=== PATIENT | female | born 1955 | race Caucasian/White ===

== ENCOUNTER → 2016-07-27 | Outpatient (CLI) | payer MEDICARE, MEDICAID ==
[~2016-07-27] MED LIST: METHACHOLINE KIT (J7674) INH ONE
== END ==
LOC: M CARPUL 13:38
PROVIDERS: ATTEND Internal Medicine Pulmonary Disease
DX: R06.00 Dyspnea, unspecified (principal)
CPT/HCPCS: 94070; 95070; J7674

== ENCOUNTER → 2016-08-16 | Outpatient (REF) | payer MEDICARE, MEDICAID | LOC: M SFHCLERA 16:37 | PROVIDERS: ATTEND Nurse Practitioner Family | DX: J06.9 Acute upper respiratory infection, unspecified (principal) ==

== ENCOUNTER → 2016-10-11 | Outpatient (REF) | payer MEDICARE, MEDICAID ==
[2016-10-11 18:31] LABS: BASO % 0.4 % (0.0-1.0); EOS # 0.1 K/mm3 (0.0-0.50); EOS % 1.5 % (0.0-3.0); LARGE UNSTAINED CELL # 0.1 K/mm3 (0.0-0.4); LARGE UNSTAINED CELL % 2.6 % (0.0-4.0); LYMPH # 1.7 K/mm3 (1.5-4.5); LYMPH % 32.8 % (24.0-44.0); MEAN CORPUSCULAR HEMOGLOBIN 26.9 pg (27.0-33.0); MEAN CORPUSCULAR HGB CONC 31.6 g/dl (32.0-36.5); MEAN CORPUSCULAR VOLUME 85.1 fl (80.0-96.0); MONO # 0.3 K/mm3 (0.0-0.8); MONO % 5.7 % (0.0-5.0); NEUTROPHILS # 2.7 K/mm3 (1.8-7.7); NEUTROPHILS % 57.1 % (36.0-66.0); PLATELET COUNT, AUTOMATED 286 k/mm3 (150-450); RED CELL DISTRIBUTION WIDTH 14.5 % (11.5-14.5); WHITE BLOOD COUNT 4.8 K/mm3 (4.0-10.0)
[2016-10-11 18:54] LABS: VITAMIN B12 LEVEL 397 PG/ML
[2016-10-11 18:59] LABS: ALBUMIN 3.7 GM/DL (3.2-5.2); ALBUMIN/GLOBULIN RATIO 1.12 (1.00-1.93); ALKALINE PHOSPHATASE 96 U/L (45-117); ALT/SGPT 18 U/L (12-78); ANION GAP 5 MEQ/L (8-16); AST/SGOT 12 U/L (15-37); BILIRUBIN,TOTAL 0.3 MG/DL (0.2-1.0); BLOOD UREA NITROGEN 15 MG/DL (7-18); CALCIUM LEVEL 8.2 MG/DL (8.5-10.1); CARBON DIOXIDE LEVEL 31 MEQ/L (21-32); CHLORIDE LEVEL 105 MEQ/L (98-107); CREATININE FOR GFR 0.65 MG/DL (0.55-1.02); GLOMERULAR FILTRATION RATE > 60.0 (>51); GLUCOSE, FASTING 92 MG/DL (70-105); POTASSIUM SERUM 4.5 MEQ/L (3.5-5.1); SODIUM LEVEL 141 MEQ/L (136-145)
== END ==
LOC: M SFHCLERA 11:56
PROVIDERS: ATTEND Family Medicine
DX: R53.82 Chronic fatigue, unspecified (principal); Z79.82 Long term (current) use of aspirin; Z79.899 Other long term (current) drug therapy
CPT/HCPCS: 80053; 82306; 82607; 82746; 84443; 85025; 96372; G0463; J3420

== ENCOUNTER → 2016-11-09 | Outpatient (REF) | payer MEDICARE, MEDICAID | LOC: M SFHCLERA 08:59 | PROVIDERS: ATTEND Family Medicine | DX: Z13.1 Encounter for screening for diabetes mellitus (principal); Z13.220 Encounter for screening for lipoid disorders; R25.2 Cramp and spasm; E78.00 Pure hypercholesterolemia, unspecified ==

== ENCOUNTER → 2016-12-20 | Outpatient (CLI) | payer MEDICARE, MEDICAID ==
[~2016-12-20] MED LIST changes: +BENT10CA PO; +BREO1INH INH; +CALC500T36 PO; -METHACHOLINE KIT (J7674) INH ONE; +NORCOTAB PO; +OMEP40CA2 PO; +PROAAER10 INH; +ZOFR4TAB3 PO
--- NOTE | 2016-12-20 18:47 | REP ---
Clinical: Pain. Technique: Neutral and frog lateral views of the left hip. Findings: Moderate arthritic degenerative changes include increased sclerosis to the acetabular roof, joint space narrowing, and marginal spurring as well as small spurring along the anteroinferior femoral head. No acute fracture dislocation. Surrounding soft tissues normal. Impression: Moderate arthritic degenerative changes. Signed by Nguyễn Lauren MD 12/20/2016 06:38 P
== END ==
LOC: M LRY 18:14
PROVIDERS: ATTEND Nurse Practitioner Family
DX: M16.12 Unilateral primary osteoarthritis, left hip (principal)
CPT/HCPCS: 73502; 96372; G0463; J1885

== ENCOUNTER 2017-01-22 12:02 | Emergency (ER) | payer OTHER, MEDICARE, MEDICAID ==
[~2017-01-22] VITALS: Ht 167.6 cm; Wt 72.7 kg
[2017-01-22 12:07] VITALS: BP 118/68
[2017-01-22] MEDS ORDERED: BENT10CA PO (12:17)
[2017-01-22] MEDS ORDERED: PROAAER10 INH (12:17)
[2017-01-22] MEDS ORDERED: OMEP40CA2 PO (12:17)
[2017-01-22] MEDS ORDERED: CALC500T36 PO (12:17)
[2017-01-22] MEDS ORDERED: BREO1INH INH (12:17)
[2017-01-22] MEDS ORDERED: IBUPROFEN 600 MG TAB As Ordered ONE (13:42)
[2017-01-22] MEDS ORDERED: ACETAMINOPHEN 325 MG TAB As Ordered ONE (13:44)
[2017-01-22] MEDS ORDERED: IBUPROFEN 600 MG TAB PO ONE (13:45)
[2017-01-22] MEDS ORDERED: ACETAMINOPHEN 325 MG TAB PO ONE (13:45)
[2017-01-22] MEDS ORDERED: NORCOTAB PO (14:00)
[2017-01-22] MEDS ORDERED: ZOFR4TAB3 PO (14:01)
--- NOTE | 2017-01-22 14:18 | REP ---
CT OF THE BRAIN WITHOUT CONTRAST: REASON: Pain after trauma. COMPARISON: None. TECHNIQUE: 4.5 mm contiguous transaxial sections were obtained from the skull base to the cerebral convexities with thin cuts through the posterior fossa without the administration of intravenous contrast. FINDINGS: The ventricles and sulci are consistent with the patient's age. There are no extra-axial fluid collections. There is no mass effect. The deep cerebral white matter is consistent with the patient's age. The orbital and petrous structures , cerebellopontine angles, and posterior fossa are unremarkable. The sella turcica, cavernous, and paracavernous structures are essentially unremarkable. The visualized portions of the paranasal sinuses and mastoid air cells are clear. Images of the skull base show no gross abnormality. IMPRESSION: Essentially unremarkable CT examination of the brain. Signed by Dayo Carreno DO 01/22/2017 04:41 P
--- NOTE | 2017-01-22 14:18 | REP ---
CT OF THE CERVICAL SPINE: REASON: Pain after trauma. PRIORS: None. Degenerative change is seen in the cervical spine, particularly at the C5-6 level where there is spondylosis. The facet joints are well aligned bilaterally. There is no evidence of an acute cervical spine fracture. There is no evidence of abnormal paraspinal soft tissue swelling. IMPRESSION: Chronic changes. Signed by Dayo Carreno DO 01/22/2017 04:41 P
--- NOTE | 2017-01-22 14:27 | REP ---
REASON: Pain. COMPARISON: None. Degenerative change is seen throughout the thoracic spine. Vertebral body height and alignment is within normal limits. There is no evidence of a fracture. IMPRESSION: Chronic changes. Signed by Dayo Carreno DO 01/22/2017 04:41 P
--- NOTE | 2017-01-22 14:28 | REP ---
TWO-VIEW CHEST: REASON: Pain after trauma. COMPARISON: 03/11/2016 FINDINGS: The superior mediastinal structures are midline. The cardiac silhouette is unremarkable in size, shape, and position. The diaphragmatic surfaces of the lungs are regular, and the costophrenic angles are clear. The pulmonary sampson are clear. The imaged osseous structures are intact. IMPRESSION: There is no acute cardiopulmonary disease. Signed by Dayo Carreno DO 01/22/2017 04:41 P
--- NOTE | 2017-01-22 14:30 | REP ---
REASON: Pain after trauma. COMPARISON: None. Degenerative change is seen involving the L4-5 level with partial syndesmophyte formation seen on the left along with endplate sclerosis and disc space narrowing with anterior lipping. Vertebral body height and alignment is within normal limits. There is no evidence of an acute fracture. There is no evidence of spondylolysis or spondylolisthesis. Degenerative facet joint changes are suspected at L4-5 and L5-S1 bilaterally. IMPRESSION: Chronic changes as described above. It should be stated that there is mild chronic superior endplate concave deformity seen L2, L1, T12 and T11. Signed by Dayo Carreno DO 01/22/2017 04:41 P
--- NOTE | 2017-01-23 02:49 | ECGEPIP ---
Stationary ECG Study [facility] - ED Test Date: 2017-01-22 Pat Name: MARY NEIL Department: Room: - Gender: F Third Miller: CARO : 1955 Requested By: Aneudy Murray Order Number: [id number] Reading MD: Anupam Oleary Measurements Intervals [place] Rate: 71 P: 57 UT: 174 QRS: 52 QRSD: 94 T: 27 QT: 414 QTc: 450 Interpretive Statements SINUS RHYTHM NONSPECIFIC T-WAVE ABNORMALITY NO PRIORS Electronically Signed On 01-23-2017 2:49:12 EDT by Anupam Oleary
== END 2017-01-22 14:19 | disposition home or self-care (01) ==
LOC: M ED 12:02 → EDBD 12:02 → M ED 14:19
DX: S13.9XXA Sprain of joints and ligaments of unspecified parts of neck, initial encounter (principal); S23.8XXA Sprain of other specified parts of thorax, initial encounter; V49.9XXA Car occupant (driver) (passenger) injured in unspecified traffic accident, initial encounter; Y92.9 Unspecified place or not applicable; Y93.9 Activity, unspecified; Y99.9 Unspecified external cause status; M51.24 Other intervertebral disc displacement, thoracic region; M51.26 Other intervertebral disc displacement, lumbar region; M51.34 Other intervertebral disc degeneration, thoracic region; M50.322 Other cervical disc degeneration at C5-C6 level; Z79.899 Other long term (current) drug therapy; Z88.5 Allergy status to narcotic agent; Z88.2 Allergy status to sulfonamides; Z88.8 Allergy status to other drugs, medicaments and biological substances

== ENCOUNTER → 2017-05-06 | Outpatient (CLI) | payer OTHER | LOC: M RAD 13:03 | PROVIDERS: ATTEND Family Medicine | DX: M54.6 Pain in thoracic spine (principal) ==

== ENCOUNTER → 2017-07-06 | Outpatient (REF) | payer OTHER ==
[2017-07-06 18:42] LABS: TOTAL 25(OH) VITAMIN D 40.5 NG/ML (30.0-100.0)
== END ==
LOC: M SFHCLERA 11:50
DX: S22.000S Wedge compression fracture of unspecified thoracic vertebra, sequela (principal); X58.XXXS Exposure to other specified factors, sequela; Y92.9 Unspecified place or not applicable
CPT/HCPCS: 82306

== ENCOUNTER → 2017-12-20 | Outpatient (CLI) | payer MEDICARE, MEDICAID, OTHER ==
[2017-12-20 12:14] LABS: BASO % 0.5 % (0.0-1.0); EOS # 0.1 10^3/uL (0.0-0.50); EOS % 1.3 % (0.0-3.0); HEMATOCRIT 38.2 % (36.0-47.0); HEMOGLOBIN 12.1 g/dl (12.0-15.5); LYMPH # 1.7 10^3/uL (1.5-4.5); LYMPH % 27.4 % (24.0-44.0); MEAN CORPUSCULAR HEMOGLOBIN 26.9 pg (27.0-33.0); MEAN CORPUSCULAR HGB CONC 31.7 g/dl (32.0-36.5); MEAN CORPUSCULAR VOLUME 84.9 fl (80.0-96.0); MONO # 0.5 10^3/uL (0.0-0.8); MONO % 8.1 % (0.0-5.0); NEUTROPHILS # 3.8 10^3/uL (1.8-7.7); NEUTROPHILS % 62.7 % (36.0-66.0); PLATELET COUNT, AUTOMATED 314 10^3/uL (150-450); WHITE BLOOD COUNT 6.1 10^3/uL (4.0-10.0)
[2017-12-20 12:40] LABS: FOLATE 18.3 NG/ML (>5.4); PTH INTACT 47.5 PG/ML (18.5-88.0); TOTAL 25(OH) VITAMIN D 52.1 NG/ML (30.0-100.0); VITAMIN B12 LEVEL 533 PG/ML (247-911)
[2017-12-20 12:51] LABS: ALBUMIN 3.7 GM/DL (3.2-5.2); ALBUMIN/GLOBULIN RATIO 1.09 (1.00-1.93); ALKALINE PHOSPHATASE 69 U/L (45-117); ALT/SGPT 23 U/L (12-78); ANION GAP 8 MEQ/L (8-16); AST/SGOT 12 U/L (7-37); BILIRUBIN,TOTAL 0.4 MG/DL (0.2-1.0); BLOOD UREA NITROGEN 15 MG/DL (7-18); CALCIUM LEVEL 8.3 MG/DL (8.8-10.2); CARBON DIOXIDE LEVEL 31 MEQ/L (21-32); CHLORIDE LEVEL 105 MEQ/L (98-107); CHOLESTEROL LEVEL 155 MG/DL (<200); CREATININE FOR GFR 0.53 MG/DL (0.55-1.30); GLOMERULAR FILTRATION RATE > 60.0 (>45); GLUCOSE, FASTING 85 MG/DL (70-100); HDL CHOLESTEROL 62 MG/DL (>40); IRON (FE) 85 UG/DL (50-170); LDL CHOLESTEROL 77.6 MG/DL (<100); MAGNESIUM LEVEL 2.1 MG/DL (1.8-2.4); NON-HDL-C 93 MG/DL; PERCENT SATURATION 18.8 % (13.2-45.0); SODIUM LEVEL 144 MEQ/L (136-145); TOTAL IRON BINDING CAPACITY 453 UG/DL (250-450); TOTAL PROTEIN 7.1 GM/DL (6.4-8.2); TRIGLYCERIDES LEVEL 77 MG/DL (<150)
[2017-12-24 08:08] LABS: COPPER PLASMA 113 ug/dL (72-166); LDL DIRECT 80 mg/dL (0-99); ZINC PLASMA 80 ug/dL (56-134)
== END ==
LOC: M LRY 09:04
DX: E66.01 Morbid (severe) obesity due to excess calories (principal); Z98.84 Bariatric surgery status; Z86.39 Personal history of other endocrine, nutritional and metabolic disease
CPT/HCPCS: 82525

== ENCOUNTER → 2018-03-10 | Outpatient (REF) | payer MEDICARE, MEDICAID ==
[2018-03-10 17:45] LABS: BASO % 0.5 % (0.0-1.0); EOS # 0.1 10^3/uL (0.0-0.50); EOS % 1.4 % (0.0-3.0); HEMATOCRIT 37.6 % (36.0-47.0); IMMATURE GRANULOCYTE % 0.3 % (0-3.0); LYMPH # 1.8 10^3/uL (1.5-4.5); LYMPH % 27.8 % (24.0-44.0); MEAN CORPUSCULAR HGB CONC 31.9 g/dl (32.0-36.5); MEAN CORPUSCULAR VOLUME 84.7 fl (80.0-96.0); MONO # 0.5 10^3/uL (0.0-0.8); MONO % 8.3 % (0.0-5.0); NEUTROPHILS % 61.7 % (36.0-66.0); PLATELET COUNT, AUTOMATED 310 10^3/uL (150-450); RED BLOOD COUNT 4.44 10^6/uL (4.00-5.40); RED CELL DISTRIBUTION WIDTH 16.9 % (11.5-14.5); WHITE BLOOD COUNT 6.5 10^3/uL (4.0-10.0)
[2018-03-10 18:12] LABS: ALBUMIN 3.8 GM/DL (3.2-5.2); ALBUMIN/GLOBULIN RATIO 1.23 (1.00-1.93); ALKALINE PHOSPHATASE 57 U/L (45-117); ALT/SGPT 20 U/L (12-78); AMYLASE 57 U/L (25-115); ANION GAP 5 MEQ/L (8-16); AST/SGOT 14 U/L (7-37); BILIRUBIN,TOTAL 0.3 MG/DL (0.2-1.0); BLOOD UREA NITROGEN 14 MG/DL (7-18); CALCIUM LEVEL 8.9 MG/DL (8.8-10.2); CARBON DIOXIDE LEVEL 30 MEQ/L (21-32); CHLORIDE LEVEL 107 MEQ/L (98-107); CPK CREATINE PHOSPHOKINASE 64 U/L (26-192); CREATININE FOR GFR 0.54 MG/DL (0.55-1.30); GLOMERULAR FILTRATION RATE > 60.0 (>45); GLUCOSE, FASTING 86 MG/DL (70-100); LIPASE 150 U/L (73-393); MB/CK RELATIVE INDEX 2.66 (< OR =4); POTASSIUM SERUM 4.8 MEQ/L (3.5-5.1); SODIUM LEVEL 142 MEQ/L (136-145); THYROID STIMULATING HORMONE 0.929 uIU/ML (0.358-3.740); TOTAL PROTEIN 6.9 GM/DL (6.4-8.2); TROPONIN I < 0.02 NG/ML (< 0.10)
== END ==
LOC: M SFHCLERA 11:56
DX: R07.9 Chest pain, unspecified (principal); Z79.899 Other long term (current) drug therapy
CPT/HCPCS: 82150

== ENCOUNTER → 2018-03-16 | Outpatient (CLI) | payer MEDICARE, MEDICAID ==
[2018-03-16 11:28] LABS: BASO % 0.7 % (0.0-1.0); EOS # 0.1 10^3/uL (0.0-0.50); EOS % 1.9 % (0.0-3.0); HEMATOCRIT 36.9 % (36.0-47.0); HEMOGLOBIN 11.6 g/dl (12.0-15.5); IMMATURE GRANULOCYTE % 0.2 % (0-3.0); LYMPH # 1.9 10^3/uL (1.5-4.5); LYMPH % 32.4 % (24.0-44.0); MEAN CORPUSCULAR HEMOGLOBIN 26.4 pg (27.0-33.0); MEAN CORPUSCULAR HGB CONC 31.4 g/dl (32.0-36.5); MEAN CORPUSCULAR VOLUME 83.9 fl (80.0-96.0); MONO # 0.5 10^3/uL (0.0-0.8); MONO % 8.9 % (0.0-5.0); NEUTROPHILS # 3.2 10^3/uL (1.8-7.7); NEUTROPHILS % 55.9 % (36.0-66.0); PLATELET COUNT, AUTOMATED 287 10^3/uL (150-450); RED CELL DISTRIBUTION WIDTH 16.1 % (11.5-14.5); WHITE BLOOD COUNT 5.7 10^3/uL (4.0-10.0)
[2018-03-16 13:22] LABS: D-DIMER QUANT < 270.0 ng/ml (<500)
[2018-03-16 15:19] LABS: ANION GAP 10 MEQ/L (8-16); BLOOD UREA NITROGEN 14 MG/DL (7-18); CALCIUM LEVEL 8.8 MG/DL (8.8-10.2); CARBON DIOXIDE LEVEL 26 MEQ/L (21-32); CHLORIDE LEVEL 108 MEQ/L (98-107); GLOMERULAR FILTRATION RATE > 60.0 (>45); GLUCOSE, FASTING 79 MG/DL (70-100); NT-PRO BNP 88 PG/ML (<125); POTASSIUM SERUM 4.5 MEQ/L (3.5-5.1); SODIUM LEVEL 144 MEQ/L (136-145); TROPONIN I < 0.02 NG/ML (< 0.10)
== END ==
LOC: M LRY 10:02
DX: I50.9 Heart failure, unspecified (principal); I25.10 Atherosclerotic heart disease of native coronary artery without angina pectoris; R07.9 Chest pain, unspecified; R00.2 Palpitations; I48.91 Unspecified atrial fibrillation; R06.02 Shortness of breath
CPT/HCPCS: 84443

== ENCOUNTER → 2018-05-28 | Outpatient (REF) | payer MEDICARE, MEDICAID | LOC: M SFHCLERA 15:49 | DX: J02.9 Acute pharyngitis, unspecified (principal) ==

== ENCOUNTER → 2018-08-14 | Outpatient (CLI) | payer MEDICARE, MEDICAID ==
[~2018-08-14] MED LIST changes: +ZOFR4TAB14 PO; -ZOFR4TAB3 PO
--- NOTE | 2018-08-14 16:42 | REP ---
Chest two views HISTORY: Shortness of breath Comparison: 01/22/2017 The lungs are clear. The heart is normal in size. The pulmonary vasculature is normal in appearance. The bony structure is intact. IMPRESSION: No acute disease. Electronically Signed by Bronson Leroy MD 08/14/2018 04:34 P
== END ==
LOC: M LRY 16:20
PROVIDERS: ATTEND Nurse Practitioner Family
DX: R06.02 Shortness of breath (principal)
CPT/HCPCS: 71046; 87804; 87880; G0463

== ENCOUNTER → 2018-08-14 | Outpatient (REF) | payer MEDICARE, MEDICAID | LOC: M SFHCLERA 15:27 | PROVIDERS: ATTEND Nurse Practitioner Family | DX: R53.81 Other malaise (principal) ==

== ENCOUNTER → 2019-02-05 | Outpatient (CLI) | payer MEDICARE, MEDICAID ==
[~2019-02-05] MED LIST changes: -CALC500T36 PO; +CALC500T61 PO; +HYDR-3715 PO; -NORCOTAB PO
[2019-02-05 11:38] LABS: BASO % 0.7 % (0.0-1.0); EOS # 0.1 10^3/uL (0.0-0.50); EOS % 2.2 % (0.0-3.0); HEMATOCRIT 36.9 % (36.0-47.0); HEMOGLOBIN 11.6 g/dl (12.0-15.5); LYMPH # 1.8 10^3/uL (1.5-4.5); LYMPH % 30.1 % (24.0-44.0); MEAN CORPUSCULAR HEMOGLOBIN 26.7 pg (27.0-33.0); MEAN CORPUSCULAR HGB CONC 31.4 g/dl (32.0-36.5); MONO # 0.7 10^3/uL (0.0-0.8); MONO % 11.1 % (0.0-5.0); NEUTROPHILS # 3.3 10^3/uL (1.8-7.7); NEUTROPHILS % 55.7 % (36.0-66.0); PLATELET COUNT, AUTOMATED 263 10^3/uL (150-450); RED BLOOD COUNT 4.34 10^6/uL (4.00-5.40); WHITE BLOOD COUNT 5.9 10^3/uL (4.0-10.0)
[2019-02-05 11:43] LABS: ALBUMIN 3.5 GM/DL (3.2-5.2); ALT/SGPT 23 U/L (12-78); BILIRUBIN,TOTAL 0.4 MG/DL (0.2-1.0); BLOOD UREA NITROGEN 17 MG/DL (7-18); CALCIUM LEVEL 8.4 MG/DL (8.8-10.2); CARBON DIOXIDE LEVEL 33 MEQ/L (21-32); CHLORIDE LEVEL 107 MEQ/L (98-107); CHOLESTEROL LEVEL 153 MG/DL (<200); CREATININE FOR GFR 0.59 MG/DL (0.55-1.30); GLOMERULAR FILTRATION RATE > 60.0 (>45); GLUCOSE, FASTING 87 MG/DL (70-100); HDL CHOLESTEROL 64 MG/DL (>40); IRON (FE) 57 UG/DL (50-170); LDL CHOLESTEROL 75 MG/DL (<100); MAGNESIUM LEVEL 2.2 MG/DL (1.8-2.4); NON-HDL-C 89 MG/DL; PERCENT SATURATION 12.6 % (13.2-45.0); POTASSIUM SERUM 4.3 MEQ/L (3.5-5.1); SODIUM LEVEL 144 MEQ/L (136-145); TOTAL IRON BINDING CAPACITY 454 UG/DL (250-450); TOTAL PROTEIN 6.6 GM/DL (6.4-8.2); TRIGLYCERIDES LEVEL 70 MG/DL (<150)
[2019-02-05 11:52] LABS: PTH INTACT 43.8 PG/ML (18.5-88.0); TOTAL 25(OH) VITAMIN D 53.6 NG/ML (30.0-100.0)
[2019-02-05 11:53] LABS: FOLATE > 24.0 NG/ML (>5.4); VITAMIN B12 LEVEL 814 PG/ML (247-911)
[2019-02-08 15:06] LABS: VITAMIN B1 LEVEL WHOLE BLOOD 187.4 nmol/L (66.5-200.0)
== END ==
LOC: M LRY 09:01
PROVIDERS: ATTEND Physician Assistant
DX: Z98.84 Bariatric surgery status (principal); E66.01 Morbid (severe) obesity due to excess calories; Z86.39 Personal history of other endocrine, nutritional and metabolic disease

== ENCOUNTER → 2019-04-05 | Outpatient (CLI) | payer MEDICARE, MEDICAID ==
[~2019-04-05] MED LIST changes: -OMEP40CA2 PO; +OMEP40CA97 PO
[2019-04-05 10:42] LABS: BASO % 0.6 % (0.0-1.0); EOS # 0.1 10^3/uL (0.0-0.5); EOS % 1.7 % (0.0-3.0); HEMOGLOBIN 11.7 g/dl (12.0-15.5); LYMPH # 1.7 10^3/uL (1.5-5.0); LYMPH % 30.9 % (24.0-44.0); MEAN CORPUSCULAR HEMOGLOBIN 26.1 pg (27.0-33.0); MEAN CORPUSCULAR HGB CONC 30.8 g/dl (32.0-36.5); MEAN CORPUSCULAR VOLUME 84.8 fl (80.0-96.0); MONO # 0.6 10^3/uL (0.0-0.8); MONO % 10.8 % (0.0-5.0); NEUTROPHILS % 55.8 % (36.0-66.0); PLATELET COUNT, AUTOMATED 270 10^3/uL (150-450); RED BLOOD COUNT 4.48 10^6/uL (4.00-5.40); WHITE BLOOD COUNT 5.4 10^3/uL (4.0-10.0)
[2019-04-05 10:53] LABS: ALBUMIN 3.8 GM/DL (3.2-5.2); ALT/SGPT 27 U/L (12-78); BILIRUBIN,DIRECT 0.2 MG/DL (0.0-0.2); BILIRUBIN,TOTAL 0.3 MG/DL (0.2-1.0); BLOOD UREA NITROGEN 10 MG/DL (7-18); CREATININE FOR GFR 0.58 MG/DL (0.55-1.30); GLOMERULAR FILTRATION RATE > 60.0 (>45); TOTAL PROTEIN 7.2 GM/DL (6.4-8.2)
--- NOTE | 2019-04-05 10:54 | REP ---
RIGHT UPPER QUADRANT ULTRASOUND: Real-time sonographic evaluation of the right upper quadrant performed. Gallbladder demonstrates no evidence of intraluminal sludge or calculi, wall thickening or pericholecystic fluid. There is no intrahepatic or extrahepatic biliary dilatation, common bile duct measuring 2 mm. Liver and pancreas demonstrate homogeneous echotexture with no gross mass. Pancreas is not optimally seen due to overlying bowel gas. Right kidney demonstrates no hydronephrosis with normal size 11.8 cm in length. IMPRESSION: Essentially negative right upper quadrant ultrasound. Electronically Signed by Gary Zarate MD 04/06/2019 09:16 A
[2019-04-05 11:01] LABS: FOLATE > 24.0 NG/ML; VITAMIN B12 LEVEL 1113 PG/ML
[2019-04-10 08:41] LABS: IGASUB2 110.7 mg/dL (73.2-301.2); IGASUB3 15.9 mg/dL (13.4-97.9); IgA SERUM (part of Subclasses) 140 mg/dL (87-352); TISSUE TRANSGLUTAMINASE IgA <2 U/mL (0-3)
== END ==
LOC: M RAD 08:51
PROVIDERS: ATTEND Internal Medicine Gastroenterology
DX: R11.0 Nausea (principal)

== ENCOUNTER → 2019-05-11 | Outpatient (REF) | payer MEDICARE, MEDICAID ==
[~2019-05-11] MED LIST changes: +ALL10TAB29 PO; +ASPI81TA85 PO; +CYAN100050 PO; +DICY10CA13 PO; +FLON1SPR; +INCR1INH INH; +LINZ145C PO; +MULTCAP PO; +PROBCAP14 PO
== END ==
LOC: M LAB REF 12:08
PROVIDERS: ATTEND Physician Assistant
DX: R50.9 Fever, unspecified (principal)

== ENCOUNTER 2019-07-26 12:38 | Day surgery (SDC) | payer MEDICARE, MEDICAID ==
[~2019-07-26] VITALS: Ht 167.6 cm; Wt 67.1 kg
[~2019-07-26 12:38] MED LIST changes: +NS 1,000 ML IV ONE
[2019-07-26] MEDS ORDERED: fentaNYL 100 MCG/2 ML INJECTION (J3010) As Ordered ONE (14:58)
[2019-07-26] MEDS ORDERED: propofoL 200 MG/20 ML VIAL As Ordered ONE (15:17)
[2019-07-26] MEDS ORDERED: LIDOCAINE 2% INJ 100 MG/5 ML SDV (FOR ANES.) As Ordered ONE (15:17)
--- NOTE | 2019-07-26 15:53 | ROOR ---
Patient Name: Annalee Billings Procedure Date: 07/26/2019 3:20 PM Date of : 1955 Age: 63 Room: [facility] Gender: Female Note Status: Finalized Procedure: Upper GI endoscopy Indications: Dyspepsia Providers: Buddy Crump MD Referring MD: Gary JEAN MD Requesting Provider: Medicines: Monitored Anesthesia Care Complications: No immediate complications. Procedure: Pre-Anesthesia Assessment: - Prior to the procedure, a History and Physical was performed, and patient medications and allergies were reviewed. The patient is competent. The risks and benefits of the procedure and the sedation options and risks were discussed with the patient. All questions were answered and informed consent was obtained. Patient identification and proposed procedure were verified by the physician, the nurse and the anesthesiologist in the procedure room. Mental Status Examination: alert and oriented. Airway Examination: normal oropharyngeal airway and neck mobility. Respiratory Examination: clear to auscultation. CV Examination: normal. Prophylactic Antibiotics: The patient does not require prophylactic antibiotics. Prior Anticoagulants: The patient has taken no previous anticoagulant or antiplatelet agents. ASA Grade Assessment: II - A patient with mild systemic disease. After reviewing the risks and benefits, the patient was deemed in satisfactory condition to undergo the procedure. The anesthesia plan was to use monitored anesthesia care (MAC). Immediately prior to administration of medications, the patient was re-assessed for adequacy to receive sedatives. The heart rate, respiratory rate, oxygen saturations, blood pressure, adequacy of pulmonary ventilation, and response to care were monitored throughout the procedure. The physical status of the patient was re-assessed after the procedure. The Endoscope was introduced through the mouth, and advanced to the afferent and efferent jejunal loops. The upper GI endoscopy was accomplished without difficulty. The patient tolerated the procedure well. Findings: The examined esophagus was normal. The Z-line was regular and was found 40 cm from the incisors. Evidence of a Neto-en-Y gastrojejunostomy was found. The gastrojejunal anastomosis was characterized by healthy appearing mucosa. This was traversed. The jsasj-xf-gjjpfup limb was characterized by healthy appearing mucosa. The jejunojejunal anastomosis was characterized by healthy appearing mucosa. The fxpfyazz-iy-ccaxoyo limb was not examined as it could not be found. Scattered mild inflammation characterized by erythema, friability and granularity was found in the gastric body. Biopsies were taken with a cold forceps for Helicobacter pylori testing. Verification of patient identification for the specimen was done by the physician and nurse using the patient's name, date and medical record number. Normal mucosa was found in the jejunum. Biopsies for histology were taken with a cold forceps for evaluation of celiac disease. Impression: - Normal esophagus. - Z-line regular, 40 cm from the incisors. - Neto-en-Y gastrojejunostomy with gastrojejunal anastomosis characterized by healthy appearing mucosa. - Gastritis. Biopsied. - Normal mucosa was found in the jejunum. Biopsied. Recommendation: - Patient has a contact number available for emergencies. The signs and symptoms of potential delayed complications were discussed with the patient. Return to normal activities tomorrow. Written discharge instructions were provided to the patient. - Resume previous diet. - Continue present medications. - Await pathology results. - Follow an antireflux regimen. - Await pathology results. - Telephone GI clinic for pathology results in 2 weeks. - Return to primary care physician. Buddy Crump MD Buddy Crump MD 07/26/2019 3:53:36 PM Electronically signed by Buddy Crump MD Number of Addenda: 0 Note Initiated On: 07/26/2019 3:20 PM Estimated Blood Loss: Estimated blood loss was minimal.
[2019-07-26 16:00] VITALS: BP 100/66
== END 2019-07-26 16:07 | disposition home or self-care (01) ==
LOC: M OPP 12:38
PROVIDERS: ATTEND Internal Medicine Gastroenterology
DX: K29.70 Gastritis, unspecified, without bleeding (principal); Z98.0 Intestinal bypass and anastomosis status; R10.13 Epigastric pain; Z79.82 Long term (current) use of aspirin; Z79.899 Other long term (current) drug therapy; Z88.1 Allergy status to other antibiotic agents; Z88.2 Allergy status to sulfonamides; Z88.5 Allergy status to narcotic agent; Z88.8 Allergy status to other drugs, medicaments and biological substances
CPT/HCPCS: 43239; 88305; J3010

== ENCOUNTER → 2019-07-27 | Outpatient (CLI) | payer MEDICARE, MEDICAID ==
[~2019-07-27] MED LIST changes: -NS 1,000 ML IV ONE
[2019-07-27 16:20] LABS: BASO % 0.2 % (0.0-1.0); EOS % 0.3 % (0.0-3.0); HEMATOCRIT 38.8 % (36.0-47.0); HEMOGLOBIN 12.5 g/dl (12.0-15.5); LYMPH # 1.6 10^3/uL (1.5-5.0); LYMPH % 12.4 % (24.0-44.0); MEAN CORPUSCULAR HEMOGLOBIN 27.7 pg (27.0-33.0); MEAN CORPUSCULAR HGB CONC 32.2 g/dl (32.0-36.5); MONO # 1.3 10^3/uL (0.0-0.8); MONO % 10.2 % (0.0-5.0); NEUTROPHILS # 9.8 10^3/uL (1.5-8.5); NEUTROPHILS % 76.4 % (36.0-66.0); PLATELET COUNT, AUTOMATED 282 10^3/uL (150-450); RED BLOOD COUNT 4.51 10^6/uL (4.00-5.40); WHITE BLOOD COUNT 12.8 10^3/uL (4.0-10.0)
[2019-07-27 16:36] LABS: BLOOD UREA NITROGEN 13 MG/DL (7-18); CALCIUM LEVEL 8.6 MG/DL (8.8-10.2); CARBON DIOXIDE LEVEL 31 MEQ/L (21-32); CHLORIDE LEVEL 106 MEQ/L (98-107); CREATININE FOR GFR 0.58 MG/DL (0.55-1.30); GLOMERULAR FILTRATION RATE > 60.0 (>45); GLUCOSE, FASTING 100 MG/DL (70-100); POTASSIUM SERUM 4.1 MEQ/L (3.5-5.1); SODIUM LEVEL 141 MEQ/L (136-145)
== END ==
LOC: M LAB 15:19
PROVIDERS: ATTEND Internal Medicine Gastroenterology
DX: R50.9 Fever, unspecified (principal)

== ENCOUNTER 2019-07-29 14:27 | Emergency (ER) | payer MEDICARE, MEDICAID ==
[~2019-07-29] VITALS: Ht 167.6 cm; Wt 68.9 kg
[2019-07-29 15:35] LABS: HEMATOCRIT 33.9 % (36.0-47.0); HEMOGLOBIN 10.6 g/dl (12.0-15.5); MEAN CORPUSCULAR HEMOGLOBIN 26.8 pg (27.0-33.0); MEAN CORPUSCULAR HGB CONC 31.3 g/dl (32.0-36.5); MEAN CORPUSCULAR VOLUME 85.8 fl (80.0-96.0); PLATELET COUNT, AUTOMATED 261 10^3/uL (150-450); RED BLOOD COUNT 3.95 10^6/uL (4.00-5.40); WHITE BLOOD COUNT 10.7 10^3/uL (4.0-10.0)
[2019-07-29 16:04] LABS: ALBUMIN 3.4 GM/DL (3.2-5.2); ALT/SGPT 18 U/L (12-78); BILIRUBIN,TOTAL 0.2 MG/DL (0.2-1.0); BLOOD UREA NITROGEN 11 MG/DL (7-18); CALCIUM LEVEL 8.2 MG/DL (8.8-10.2); CARBON DIOXIDE LEVEL 31 MEQ/L (21-32); CHLORIDE LEVEL 107 MEQ/L (98-107); CREATININE FOR GFR 0.49 MG/DL (0.55-1.30); GLOMERULAR FILTRATION RATE > 60.0 (>45); GLUCOSE, FASTING 85 MG/DL (70-100); POTASSIUM SERUM 4.1 MEQ/L (3.5-5.1); SODIUM LEVEL 143 MEQ/L (136-145); TOTAL PROTEIN 6.9 GM/DL (6.4-8.2)
[2019-07-29 16:57] VITALS: BP 109/51
== END 2019-07-29 17:20 | disposition home or self-care (01) ==
LOC: M ED 14:27
DX: D64.9 Anemia, unspecified (principal); R50.9 Fever, unspecified; Z98.84 Bariatric surgery status; Z96.659 Presence of unspecified artificial knee joint; Z88.2 Allergy status to sulfonamides; Z88.5 Allergy status to narcotic agent; Z88.1 Allergy status to other antibiotic agents; Z79.82 Long term (current) use of aspirin; Z79.51 Long term (current) use of inhaled steroids; Z79.899 Other long term (current) drug therapy

== ENCOUNTER 2020-03-20 16:42 | Emergency (ER) | payer MEDICARE, MEDICAID ==
[~2020-03-20] VITALS: Ht 167.6 cm; Wt 69.3 kg
[~2020-03-20 16:42] MED LIST changes: -ALL10TAB29 PO; -ASPI81TA85 PO; +ASPI81TA86 PO; +CETI-24 PO
[2020-03-20 17:39] LABS: BASO % 0.4 % (0.0-1.0); EOS # 0.1 10^3/uL (0.0-0.5); EOS % 1.2 % (0.0-3.0); HEMATOCRIT 38.4 % (36.0-47.0); HEMOGLOBIN 11.5 g/dl (12.0-15.5); LYMPH # 1.9 10^3/uL (1.5-5.0); LYMPH % 24.9 % (24.0-44.0); MEAN CORPUSCULAR HEMOGLOBIN 24.5 pg (27.0-33.0); MEAN CORPUSCULAR HGB CONC 29.9 g/dl (32.0-36.5); MEAN CORPUSCULAR VOLUME 81.9 fl (80.0-96.0); MONO # 0.7 10^3/uL (0.0-0.8); NEUTROPHILS # 4.9 10^3/uL (1.5-8.5); NEUTROPHILS % 64.2 % (36.0-66.0); PLATELET COUNT, AUTOMATED 329 10^3/uL (150-450); RED BLOOD COUNT 4.69 10^6/uL (4.00-5.40); WHITE BLOOD COUNT 7.7 10^3/uL (4.0-10.0)
[2020-03-20 18:01] LABS: ALBUMIN 3.8 GM/DL (3.2-5.2); ALT/SGPT 27 U/L (12-78); BILIRUBIN,DIRECT 0.1 MG/DL (0.0-0.2); BILIRUBIN,TOTAL 0.3 MG/DL (0.2-1.0); BLOOD UREA NITROGEN 15 MG/DL (7-18); CALCIUM LEVEL 9.1 MG/DL (8.8-10.2); CARBON DIOXIDE LEVEL 31 MEQ/L (21-32); CHLORIDE LEVEL 105 MEQ/L (98-107); CREATININE FOR GFR 0.54 MG/DL (0.55-1.30); GLOMERULAR FILTRATION RATE > 60.0 (>45); GLUCOSE, FASTING 97 MG/DL (70-100); LIPASE 118 U/L (73-393); POTASSIUM SERUM 4.2 MEQ/L (3.5-5.1); SODIUM LEVEL 142 MEQ/L (136-145); TOTAL PROTEIN 7.2 GM/DL (6.4-8.2)
[2020-03-20] MEDS ORDERED: GI COCKTAIL 50ML BTL(HYOSCYAMINE/MAALOX/LIDOCAINE VISCOUS)(1:3:1) PO ONE (20:00)
--- NOTE | 2020-03-20 20:56 | REPVR ---
PROCEDURE INFORMATION: Exam: XR Complete Acute Abdomen Series Exam date and time: 03/20/2020 8:04 PM Age: 64 years old Clinical indication: Abdominal pain; Additional info: Abd pain, eructation TECHNIQUE: Imaging protocol: XR complete acute abdomen series, including 2 or more views of the abdomen and a single view chest. COMPARISON: CR CHEST 2 VIEW 08/14/2018 4:24 PM FINDINGS: Lungs: Normal. No consolidation. Pleural space: Normal. No pneumothorax. Heart/Mediastinum: Normal. No cardiomegaly. Gastrointestinal tract: Moderate colonic fecal load. No dilated small bowel loops. Intraperitoneal space: Surgical clips in the left lower quadrant. Bones/joints: Normal. No acute fracture. Soft tissues: Normal. IMPRESSION: Moderate colonic fecal load. Clinical correlation with constipation. Electronically signed by: Chadwick Campos On 03/20/2020 20:56:24 PM
[2020-03-20 21:48] VITALS: BP 115/55
== END 2020-03-20 21:49 | disposition home or self-care (01) ==
LOC: M ED 16:42
DX: K59.00 Constipation, unspecified (principal); K21.9 Gastro-esophageal reflux disease without esophagitis; K58.9 Irritable bowel syndrome, unspecified; Z98.84 Bariatric surgery status; Z88.2 Allergy status to sulfonamides; Z88.6 Allergy status to analgesic agent; Z88.8 Allergy status to other drugs, medicaments and biological substances

== ENCOUNTER → 2020-04-02 | Outpatient (CLI) | payer MEDICARE, MEDICAID ==
[2020-04-02 15:08] LABS: BASO % 0.3 % (0.0-1.0); EOS # 0.1 10^3/uL (0.0-0.5); EOS % 1.3 % (0.0-3.0); HEMATOCRIT 37.5 % (36.0-47.0); HEMOGLOBIN 11.3 g/dl (12.0-15.5); LYMPH # 1.9 10^3/uL (1.5-5.0); LYMPH % 23.2 % (24.0-44.0); MEAN CORPUSCULAR HEMOGLOBIN 24.8 pg (27.0-33.0); MEAN CORPUSCULAR HGB CONC 30.1 g/dl (32.0-36.5); MEAN CORPUSCULAR VOLUME 82.2 fl (80.0-96.0); MONO # 0.8 10^3/uL (0.0-0.8); MONO % 9.5 % (0.0-5.0); NEUTROPHILS # 5.2 10^3/uL (1.5-8.5); NEUTROPHILS % 65.3 % (36.0-66.0); PLATELET COUNT, AUTOMATED 332 10^3/uL (150-450); RED BLOOD COUNT 4.56 10^6/uL (4.00-5.40)
[2020-04-02 15:37] LABS: ALBUMIN 3.6 GM/DL (3.2-5.2); ALT/SGPT 21 U/L (12-78); BILIRUBIN,TOTAL 0.2 MG/DL (0.2-1.0); BLOOD UREA NITROGEN 20 MG/DL (7-18); CALCIUM LEVEL 8.8 MG/DL (8.8-10.2); CARBON DIOXIDE LEVEL 32 MEQ/L (21-32); CHLORIDE LEVEL 105 MEQ/L (98-107); CHOLESTEROL LEVEL 164 MG/DL (<200); CHOLESTEROL RISK RATIO 2.603 (<5); CREATININE FOR GFR 0.54 MG/DL (0.55-1.30); GLOMERULAR FILTRATION RATE > 60.0 (>45); GLUCOSE, FASTING 89 MG/DL (70-100); HDL CHOLESTEROL 63 MG/DL (>40); IRON (FE) 29 UG/DL (50-170); LDL CHOLESTEROL 89 MG/DL (<100); MAGNESIUM LEVEL 2.2 MG/DL (1.8-2.4); NON-HDL-C 101 MG/DL; PERCENT SATURATION 5.7 % (13.2-45.0); POTASSIUM SERUM 4.6 MEQ/L (3.5-5.1); SODIUM LEVEL 140 MEQ/L (136-145); TOTAL IRON BINDING CAPACITY 509 UG/DL (250-450); TRIGLYCERIDES LEVEL 61 MG/DL (<150)
[2020-04-02 15:45] LABS: PTH INTACT 41.5 PG/ML (18.5-88.0); TOTAL 25(OH) VITAMIN D 50.4 NG/ML (30.0-100.0); VITAMIN B12 LEVEL 785 PG/ML (247-911)
[2020-04-02 15:46] LABS: FOLATE 21.4 NG/ML (>5.4)
[2020-04-08 12:12] LABS: VITAMIN B1 LEVEL WHOLE BLOOD 153.4 nmol/L (66.5-200.0)
== END ==
LOC: M LAB 14:23
PROVIDERS: ATTEND Physician Assistant
DX: R79.9 Abnormal finding of blood chemistry, unspecified (principal); Z98.84 Bariatric surgery status; Z79.899 Other long term (current) drug therapy

== ENCOUNTER → 2020-07-10 | Outpatient (CLI) | payer MEDICARE, MEDICAID | LOC: M LABSMTC 13:14 | PROVIDERS: ATTEND Family Medicine | DX: Z20.822 Contact with and (suspected) exposure to COVID-19 (principal) ==

== ENCOUNTER → 2020-08-26 | Outpatient (CLI) | payer MEDICARE, MEDICAID ==
[~2020-08-26] MED LIST changes: +ASPE4PAD TOP; +ROBA750T4 PO
[2020-08-26 12:32] LABS: PERCENT SATURATION 29.6 % (13.2-45.0)
== END ==
LOC: M LAB 11:12
PROVIDERS: ATTEND Physician Assistant Medical
DX: E61.1 Iron deficiency (principal)

== ENCOUNTER 2020-08-27 20:21 | Emergency (ER) | payer MEDICARE, MEDICAID ==
[~2020-08-27] VITALS: Ht 167.6 cm; Wt 70.9 kg
[~2020-08-27 20:21] MED LIST changes: -ASPE4PAD TOP; -ROBA750T4 PO
[2020-08-27] MEDS ORDERED: KETOROLAC 60MG 2ML VIAL IM ONE (21:40)
[2020-08-27] MEDS ORDERED: methocarbamoL 750 MG TAB PO ONE (21:40)
[2020-08-27] MEDS ORDERED: LIDOCAINE 5% (LIDODERM) PATCH TD ONE (21:40)
--- NOTE | 2020-08-27 22:36 | REPVR ---
PROCEDURE INFORMATION: Exam: US Duplex Right Upper Extremity Veins, Limited Exam date and time: 08/27/2020 10:26 PM Age: 64 years old Clinical indication: Pain; Arm, upper; Right; Additional info: Rue pain, no nicole TECHNIQUE: Imaging protocol: Real-time Duplex ultrasound of the Right Upper Extremity with 2-D corrales scale, color Doppler flow and spectral waveform analysis with image documentation. Limited exam focused on the right upper extremity veins. COMPARISON: No relevant prior studies available. FINDINGS: Right deep veins: Unremarkable. Axillary and brachial veins are patent throughout without thrombus. Normal Doppler waveforms. Normal compressibility and/or augmentation response. Visualized internal jugular and subclavian veins are patent. Right superficial veins: Unremarkable. Visualized cephalic and basilic veins are patent without thrombus. Soft tissues: Unremarkable. IMPRESSION: No sonographic evidence of deep vein thrombosis. Electronically signed by: Babar Finnegan On 08/27/2020 22:36:46 PM
[2020-08-27] MEDS ORDERED: ASPE4PAD TOP (22:43)
[2020-08-27] MEDS ORDERED: ROBA750T4 PO (22:43)
[2020-08-27 22:50] VITALS: BP 141/72
[2020-08-28] MEDS ORDERED: **NOTE PATIENT COMMENT** MISC XX SCH (21:00)
== END 2020-08-27 22:53 | disposition home or self-care (01) ==
LOC: M ED 20:21
DX: M25.511 Pain in right shoulder (principal); M79.621 Pain in right upper arm; J45.909 Unspecified asthma, uncomplicated; Z88.1 Allergy status to other antibiotic agents; Z88.2 Allergy status to sulfonamides; Z88.6 Allergy status to analgesic agent; Z88.8 Allergy status to other drugs, medicaments and biological substances; Z79.899 Other long term (current) drug therapy

== ENCOUNTER → 2020-10-03 | Outpatient (CLI) | payer MEDICARE, MEDICAID ==
[~2020-10-03] MED LIST changes: +ASPE4PAD TOP; +ROBA750T4 PO
--- NOTE | 2020-10-03 14:18 | REPMRS ---
Patient History The patient states she has not had a clinical breast exam in over a year. Family history of colorectal cancer at age 50 or over in maternal uncle. 3D TOMOSYNTHESIS WAS PERFORMED. The Jarrett Fay lifetime risk for breast cancer is 6.1%. Volpara breast density c. Digital Woman Screen Mammo: October 03, 2020 - Exam #: [id number] Bilateral CC and MLO view(s) were taken. Technologist: Zabrina Edwards, Technologist Prior study comparison: May 26, 2015, digital woman screen mammo performed at [facility]. November 15, 2013, digital bilateral screening mammo, performed at [facility]. FINDINGS: The breast tissue is heterogeneously dense. This may lower the sensitivity of mammography. There has been no change in the appearance of the mammogram from the prior studies. There is a moderate amount of residual fibroglandular tissue which is fairly symmetric. There is no interval development of dominant mass, areas of architectural distortion, or clustered microcalcification typical of malignancy. Assessment: BI-RADS/ACR category 1 mammogram. Negative Mammogram. Recommendation Routine screening mammogram in 1 year (for women over age 40). This mammogram was interpreted with the aid of an FDA-approved computer-aided dectection system. Electronically Signed By: Gary Zarate MD 10/03/20 1155
== END ==
LOC: M WHC 12:45
PROVIDERS: ATTEND Family Medicine
DX: Z12.31 Encounter for screening mammogram for malignant neoplasm of breast (principal)

== ENCOUNTER 2020-10-12 11:22 | Emergency (ER) | payer MEDICARE, MEDICAID ==
[~2020-10-12] VITALS: Ht 167.6 cm; Wt 69.1 kg
[2020-10-12] MEDS ORDERED: ISOVUE-370 76% 100ML VIAL As Ordered ONE (12:56)
[2020-10-12 13:20] LABS: BASO % 0.2 % (0.0-1.0); EOS # 0.1 10^3/uL (0.0-0.5); EOS % 0.9 % (0.0-3.0); HEMATOCRIT 39.1 % (36.0-47.0); HEMOGLOBIN 12.8 g/dl (12.0-15.5); LYMPH # 1.4 10^3/uL (1.5-5.0); LYMPH % 15.3 % (24.0-44.0); MEAN CORPUSCULAR HEMOGLOBIN 30.6 pg (27.0-33.0); MEAN CORPUSCULAR HGB CONC 32.7 g/dl (32.0-36.5); MEAN CORPUSCULAR VOLUME 93.5 fl (80.0-96.0); MONO # 0.7 10^3/uL (0.0-0.8); MONO % 8.2 % (2.0-8.0); NEUTROPHILS # 6.7 10^3/uL (1.5-8.5); NEUTROPHILS % 75.1 % (36.0-66.0); PLATELET COUNT, AUTOMATED 229 10^3/uL (150-450); RED BLOOD COUNT 4.18 10^6/uL (4.00-5.40); WHITE BLOOD COUNT 8.9 10^3/uL (4.0-10.0)
--- NOTE | 2020-10-12 13:22 | REP ---
INDICATION: LLQ pain/fever. COMPARISON: None. TECHNIQUE: Helical scanning was acquired and 4 mm axial images are re-formatted. Coronal and sagittal MPR images were generated and reviewed. The contrast enhancement dose is 100 mL of intravenous Isovue 370. 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 No evidence of obstruction. Lung bases are clear. The liver is somewhat prominent in size with a midclavicular vertical span of 17.5 cm. No focal hepatic lesion is seen. The spleen is homogeneous in texture. It is not enlarged. A cyst sliding hiatal hernia is suspected. The patient is status post gastric bypass. There is a 2 cm somewhat low-density nodule in the right adrenal gland. The left adrenal gland is unremarkable. The kidneys enhance symmetrically and are morphologically intact. No abnormality is noted in the gallbladder or the pancreas. No retroperitoneal mass or adenopathy is seen. There is some diverticulosis in the sigmoid colon.. No abdominal wall defect is seen. Uterus is tipped to the right but otherwise unremarkable. There is a small cyst in the right ovary measuring 1.8 cm in diameter. No pelvic mass or adenopathy is seen. No bony destructive lesion is noted. There is pericolonic streaking and some mural thickening in the mid descending colon adjacent to a colonic diverticulum consistent with mid descending colon diverticulitis. No abscess or free air is seen. IMPRESSION: Findings consistent with acute diverticulitis mid descending colon. No free air or abscess. There is a 2.0 cm right adrenal nodule of uncertain significance. Most likely a benign adrenal adenoma. Follow-up MRI or noncontrast CT study recommended for further evaluation. <Electronically signed by Zachary Rodriguez > 10/12/20 [id number]
[2020-10-12] MEDS ORDERED: AUGM875T28 PO (13:38)
[2020-10-12 13:44] LABS: ALBUMIN 3.2 GM/DL (3.2-5.2); BILIRUBIN,DIRECT 0.2 MG/DL (0.0-0.2); BILIRUBIN,TOTAL 0.4 MG/DL (0.2-1.0)
[2020-10-12 14:00] VITALS: BP 147/66
--- NOTE | 2020-10-13 09:21 | ECGEPIP ---
[facility] - ED Test Date: 2020-10-12 Pat Name: MARY NEIL Department: Room: - Gender: Female Melt Supervisor: LEYLA HARRIS : 1955 Requested By: LORETTA Isaacs PA-C Order Number: [id number] Reading MD: Sky Yang Measurements Intervals [place] Rate: 61 P: 59 MD: 172 QRS: 34 QRSD: 88 T: 46 QT: 452 QTc: 455 Interpretive Statements Normal sinus rhythm Nonspecific T wave abnormality Similar to tracing done 01-22-17 Electronically Signed on 10-13-2020 9:20:51 EDT by Sky Yang
== END 2020-10-12 14:11 | disposition home or self-care (01) ==
LOC: M ED 11:22
DX: K57.32 Diverticulitis of large intestine without perforation or abscess without bleeding (principal); E27.9 Disorder of adrenal gland, unspecified; Z78.0 Asymptomatic menopausal state; Z86.73 Personal history of transient ischemic attack (TIA), and cerebral infarction without residual deficits; Z88.1 Allergy status to other antibiotic agents; Z88.2 Allergy status to sulfonamides; Z88.6 Allergy status to analgesic agent
CPT/HCPCS: 36415; 74177; 80047; 80076; 83605; 83690; 84484; 85025; 93005; 99284; Q9967

== ENCOUNTER → 2021-02-10 | Outpatient (CLI) | payer MEDICARE, MEDICAID ==
[~2021-02-10] MED LIST changes: +AUGM875T28 PO; +OMEP40CA4 PO; -OMEP40CA97 PO
[2021-02-10 10:35] LABS: BASO % 0.4 % (0.0-1.0); EOS # 0.1 10^3/uL (0.0-0.5); EOS % 1.4 % (0.0-3.0); HEMATOCRIT 43.5 % (36.0-47.0); HEMOGLOBIN 14.3 g/dl (12.0-15.5); LYMPH # 1.4 10^3/uL (1.5-5.0); LYMPH % 23.9 % (24.0-44.0); MEAN CORPUSCULAR HEMOGLOBIN 30.2 pg (27.0-33.0); MEAN CORPUSCULAR HGB CONC 32.9 g/dl (32.0-36.5); MEAN CORPUSCULAR VOLUME 91.8 fl (80.0-96.0); MONO # 0.7 10^3/uL (0.0-0.8); MONO % 12.6 % (2.0-8.0); NEUTROPHILS # 3.5 10^3/uL (1.5-8.5); NEUTROPHILS % 61.5 % (36.0-66.0); PLATELET COUNT, AUTOMATED 289 10^3/uL (150-450); RED BLOOD COUNT 4.74 10^6/uL (4.00-5.40); WHITE BLOOD COUNT 5.7 10^3/uL (4.0-10.0)
[2021-02-10 10:58] LABS: HEMOGLOBIN A1c 5.2 %
[2021-02-10 11:18] LABS: ALBUMIN 3.9 GM/DL (3.2-5.2); ALT/SGPT 35 U/L (12-78); BILIRUBIN,DIRECT 0.1 MG/DL (0.0-0.2); BILIRUBIN,TOTAL 0.4 MG/DL (0.2-1.0); BLOOD UREA NITROGEN 14 MG/DL (7-18); CALCIUM LEVEL 8.6 MG/DL (8.8-10.2); CARBON DIOXIDE LEVEL 31 MEQ/L (21-32); CHLORIDE LEVEL 106 MEQ/L (98-107); CHOLESTEROL LEVEL 148 MG/DL (<200); CHOLESTEROL RISK RATIO 2.426 (<5); CREATININE FOR GFR 0.52 MG/DL (0.55-1.30); GLOMERULAR FILTRATION RATE > 60.0 (>45); GLUCOSE, FASTING 92 MG/DL (70-100); HDL CHOLESTEROL 61 MG/DL (>40); LDL CHOLESTEROL 72 MG/DL (<100); NON-HDL-C 87 MG/DL; NT-PRO BNP 60 PG/ML (<125); POTASSIUM SERUM 4.4 MEQ/L (3.5-5.1); SODIUM LEVEL 140 MEQ/L (136-145); THYROID STIMULATING HORMONE 0.767 uIU/ML (0.358-3.740); TOTAL PROTEIN 7.1 GM/DL (6.4-8.2); TOTAL T3 112.3 NG/DL (60.0-181.0); TRIGLYCERIDES LEVEL 74 MG/DL (<150)
== END ==
LOC: M LAB 02-09 09:18
PROVIDERS: ATTEND Internal Medicine Cardiovascular Disease
DX: I50.32 Chronic diastolic (congestive) heart failure (principal); R73.09 Other abnormal glucose; E78.5 Hyperlipidemia, unspecified; E78.00 Pure hypercholesterolemia, unspecified; R07.9 Chest pain, unspecified; R00.2 Palpitations; I48.91 Unspecified atrial fibrillation; I25.10 Atherosclerotic heart disease of native coronary artery without angina pectoris

== ENCOUNTER → 2021-02-18 | Outpatient (CLI) | payer MEDICARE, MEDICAID ==
--- NOTE | 2021-02-18 13:18 | REP ---
INDICATION: SHORTNESS OF BREATH. COMPARISON: Multiple the latest frontal view the chest obtained 03/20/2020 TECHNIQUE: PA and lateral FINDINGS: The superior mediastinal structures are midline. The cardiac silhouette is unremarkable in size, shape, and position. The diaphragmatic surfaces of the lungs are regular, and the costophrenic angles are clear. The pulmonary sampson are clear. The imaged osseous structures are intact. IMPRESSION: There is no acute cardiopulmonary disease. <Electronically signed by Dayo Carreno > 02/18/21 [id number]
== END ==
LOC: M RAD 13:04
PROVIDERS: ATTEND Nurse Practitioner Adult Health
DX: R06.02 Shortness of breath (principal)

== ENCOUNTER → 2021-03-12 | Outpatient (CLI) | payer MEDICARE, MEDICAID ==
--- NOTE | 2021-03-12 11:51 | REP ---
INDICATION: CONSTIPATION, UNSPECIFIED. COMPARISON: 03/20/2020 FINDINGS: KUB shows the intestinal gas pattern to be nonspecific. The organ silhouettes insofar as delineated are unremarkable. There is no evidence of free intraperitoneal air. The stool pattern is unremarkable IMPRESSION: Nonspecific. <Electronically signed by Dayo Carreno > 03/12/21 1144
== END ==
LOC: M RAD 11:29
PROVIDERS: ATTEND Nurse Practitioner Family
DX: K59.00 Constipation, unspecified (principal)

== ENCOUNTER → 2021-04-02 | Outpatient (CLI) | payer MEDICARE, MEDICAID | LOC: M LABSMTC 09:21 | PROVIDERS: ATTEND Pediatrics | DX: Z20.822 Contact with and (suspected) exposure to COVID-19 (principal) ==

== ENCOUNTER → 2021-07-22 | Outpatient (CLI) | payer MEDICARE, MEDICAID | LOC: M LABSMTC 09:17 | PROVIDERS: ATTEND Family Medicine | DX: Z20.822 Contact with and (suspected) exposure to COVID-19 (principal) | CPT/HCPCS: C9803; U0003 ==

== ENCOUNTER → 2021-07-31 | Outpatient (CLI) | payer MEDICARE, MEDICAID | LOC: M LABSMTC 10:52 | PROVIDERS: ATTEND Family Medicine | DX: Z20.822 Contact with and (suspected) exposure to COVID-19 (principal) | CPT/HCPCS: C9803; U0003 ==

== ENCOUNTER 2022-02-04 11:59 | Emergency (ER) | payer MEDICARE, MEDICAID ==
[~2022-02-04] VITALS: Ht 167.6 cm; Wt 68.5 kg
[2022-02-04 16:07] LABS: BASO % 0.4 % (0.0-1.0); EOS # 0.1 10^3/uL (0.0-0.5); EOS % 0.6 % (0.0-3.0); HEMATOCRIT 44.5 % (36.0-47.0); HEMOGLOBIN 14.4 g/dl (12.0-15.5); LYMPH # 1.9 10^3/uL (1.5-5.0); LYMPH % 24.3 % (24.0-44.0); MEAN CORPUSCULAR HEMOGLOBIN 29.4 pg (27.0-33.0); MEAN CORPUSCULAR HGB CONC 32.4 g/dl (32.0-36.5); MONO # 0.6 10^3/uL (0.0-0.8); MONO % 8.3 % (2.0-8.0); NEUTROPHILS # 5.1 10^3/uL (1.5-8.5); NEUTROPHILS % 66.1 % (36.0-66.0); PLATELET COUNT, AUTOMATED 265 10^3/uL (150-450); RED BLOOD COUNT 4.89 10^6/uL (4.00-5.40); WHITE BLOOD COUNT 7.8 10^3/uL (4.0-10.0)
[2022-02-04 16:55] LABS: ALBUMIN 3.8 GM/DL (3.2-5.2); ALT/SGPT 26 U/L (12-78); BILIRUBIN,DIRECT 0.1 MG/DL (0.0-0.2); BILIRUBIN,TOTAL 0.5 MG/DL (0.2-1.0); BLOOD UREA NITROGEN 17 MG/DL (7-18); CARBON DIOXIDE LEVEL 32 MEQ/L (21-32); CHLORIDE LEVEL 104 MEQ/L (98-107); CREATININE FOR GFR 0.48 MG/DL (0.55-1.30); FREE T4 1.12 NG/DL (0.76-1.46); GLOMERULAR FILTRATION RATE > 60.0 (>45); GLUCOSE, FASTING 87 MG/DL (70-100); POTASSIUM SERUM 4.1 MEQ/L (3.5-5.1); SODIUM LEVEL 139 MEQ/L (136-145); THYROID STIMULATING HORMONE 0.849 uIU/ML (0.358-3.740); TOTAL PROTEIN 7.1 GM/DL (6.4-8.2)
[2022-02-04 17:37] LABS: VITAMIN B12 LEVEL 779 PG/ML (247-911)
[2022-02-04 17:39] VITALS: BP 130/70
== END 2022-02-04 17:41 | disposition home or self-care (01) ==
LOC: M ED 11:59
DX: R26.0 Ataxic gait (principal); R00.1 Bradycardia, unspecified; I10 Essential (primary) hypertension; J45.909 Unspecified asthma, uncomplicated; Z86.73 Personal history of transient ischemic attack (TIA), and cerebral infarction without residual deficits; Z88.2 Allergy status to sulfonamides; Z88.5 Allergy status to narcotic agent; Z88.8 Allergy status to other drugs, medicaments and biological substances

== ENCOUNTER 2022-05-16 20:31 | Inpatient (IN) | payer MEDICARE, MEDICAID ==
[~2022-05-16] VITALS: Ht 167.6 cm; Wt 67.8 kg
[~2022-05-16 20:31] MED LIST changes: -FLON1SPR; +FLON1SPR NARES
[2022-05-17] VITALS (9 sets, daily range): BP systolic 100–127; BP diastolic 58–71
[2022-05-17] MEDS ORDERED: NS 1,000 ML IV ONE (00:45)
[2022-05-17 01:07] LABS: BASO % 0.3 % (0.0-1.0); EOS % 0.3 % (0.0-3.0); HEMATOCRIT 25.9 % (36.0-47.0); HEMOGLOBIN 8.3 g/dl (12.0-15.5); LYMPH # 2.3 10^3/uL (1.5-5.0); LYMPH % 18.2 % (24.0-44.0); MEAN CORPUSCULAR HEMOGLOBIN 30.2 pg (27.0-33.0); MEAN CORPUSCULAR VOLUME 94.2 fl (80.0-96.0); MONO # 1.1 10^3/uL (0.0-0.8); MONO % 8.8 % (2.0-8.0); NEUTROPHILS # 9.2 10^3/uL (1.5-8.5); NEUTROPHILS % 72.1 % (36.0-66.0); PLATELET COUNT, AUTOMATED 294 10^3/uL (150-450); RED BLOOD COUNT 2.75 10^6/uL (4.00-5.40); WHITE BLOOD COUNT 12.8 10^3/uL (4.0-10.0)
[2022-05-17 01:52] LABS: ALBUMIN 3.4 G/DL (3.2-5.2); ALT/SGPT 25 U/L (7.0-40); BILIRUBIN,DIRECT < 0.1 MG/DL (<0.4); BILIRUBIN,TOTAL 0.3 MG/DL (0.3-1.2); BLOOD UREA NITROGEN 27 MG/DL (9-23); CALCIUM LEVEL 8.2 MG/DL (8.3-10.6); CARBON DIOXIDE LEVEL 27 MMOL/L (20-31); CHLORIDE LEVEL 105 MMOL/L (98-107); CK-MB VALUE MASS < 1.0 NG/ML (<3.6); CPK CREATINE PHOSPHOKINASE 41 U/L (34-145); CREATININE FOR GFR 0.47 MG/DL (0.55-1.30); FREE T4 1.08 NG/DL (0.89-1.76); GLOMERULAR FILTRATION RATE > 60.0 (>45); GLUCOSE, FASTING 123 MG/DL (74-106); LIPASE 34 U/L (12-53); MAGNESIUM LEVEL 1.9 MG/DL (1.8-2.4); MB/CK RELATIVE INDEX 2.43 (< OR =4); POTASSIUM SERUM 4.4 MMOL/L (3.5-5.1); SODIUM LEVEL 139 MMOL/L (136-145)
[2022-05-17] MEDS ORDERED: ISOVUE-370 76% 100ML VIAL As Ordered ONE (01:58)
[2022-05-17] MEDS ORDERED: PANTOPRAZOLE 40MG VIAL IV ONE (03:30)
[2022-05-17] MEDS: NS 1,000 ML IV SCH ×3 (05:05→21:48)
[2022-05-17 06:30] LABS: HEMATOCRIT 20.3 % (36.0-47.0); HEMOGLOBIN 6.5 g/dl (12.0-15.5)
[2022-05-17] MEDS: TIOTROPIUM INHALER/CAPSULE (SPIRIVA) INH SCH (08:00)
[2022-05-17] MEDS ORDERED: ONDANSETRON 4MG 2ML VIAL IV PRN (08:30)
[2022-05-17 11:03] LABS: HEMATOCRIT 19.9 % (36.0-47.0); HEMOGLOBIN 6.3 g/dl (12.0-15.5)
[2022-05-17] MEDS: PANTOPRAZOLE 40MG VIAL IV SCH ×2 (12:00→21:43)
[2022-05-17] MEDS ORDERED: fentaNYL 100 MCG/2 ML INJECTION As Ordered ONE (13:24)
[2022-05-17] MEDS ORDERED: SUCCINYLCHOLINE 100 MG/5 ML SYRINGE (J0330) As Ordered ONE (13:25)
[2022-05-17] MEDS ORDERED: propofoL 200 MG/20 ML VIAL As Ordered ONE (13:25)
[2022-05-17] MEDS ORDERED: LIDOCAINE 2% 100MG/5ML SDV (FOR ANES.) As Ordered ONE (13:25)
[2022-05-17] MEDS ORDERED: dexameTHASONE 4 MG/ML 1ML VIAL (J1100 PER 1MG) As Ordered ONE (13:25)
[2022-05-17] MEDS ORDERED: ONDANSETRON 4MG 2ML VIAL As Ordered ONE (13:25)
[2022-05-17] MEDS ORDERED: MIDAZOLAM INJ 2MG/2ML VIAL (J2250 PER 1MG) As Ordered ONE (14:48)
[2022-05-17] MEDS ORDERED: METOCLOPRAMIDE INJ 10MG/2ML VIAL (J2765 PER 1) IV PRN (15:50)
[2022-05-17] MEDS ORDERED: ASPI81TA26 PO (16:50)
[2022-05-17] MEDS ORDERED: VENTAER INH (16:50)
[2022-05-17] MEDS ORDERED: FLUT1BLS17 INH (16:50)
[2022-05-17] MEDS ORDERED: VITMTA PO (16:50)
[2022-05-17] MEDS ORDERED: HOME MED LIST COMPLETE! XX SCH (16:55)
[2022-05-17 17:10] LABS: HEMATOCRIT 25.9 % (36.0-47.0)
[2022-05-17 17:24] LABS: HEMOGLOBIN 8.4 g/dl (12.0-15.5)
[2022-05-17] MEDS ORDERED: ALBUTEROL 90 MCG/ACT 8GM HFA INHALER INH PRN (17:35)
[2022-05-17] MEDS: SUCRALFATE SUSP 1GM/10ML UD PO SCH (18:14)
[2022-05-17] MEDS: ONDANSETRON 4MG 2ML VIAL IV ONE ×2 (18:14→18:15)
[2022-05-17 18:47] LABS: FERRITIN 5.2 NG/ML (7.3-270.7); FOLATE > 24.00 NG/ML (>5.4); IRON (FE) 122 UG/DL (50-170); PERCENT SATURATION 38.6 % (13.2-45.0); TOTAL IRON BINDING CAPACITY 316 UG/DL (250-425); VITAMIN B12 LEVEL 490 PG/ML (211-911)
[2022-05-17] MEDS: SYMBICORT 160/4.5MCG INHALER 6GM INH SCH (20:32)
[2022-05-17] MEDS ORDERED: OMEPRAZOLE 20MG CAP PO SCH (21:00)
[2022-05-17] MEDS: OYSTER SHELL CALCIUM 500 MG TAB PO SCH (21:42)
[2022-05-17] MEDS: MULTIVITAMINS/MINERALS THERAP 1 TAB PO SCH (21:43)
[2022-05-17] MEDS: DICYCLOMINE 10 MG CAP PO SCH (21:43)
[2022-05-17 22:54] LABS: HEMATOCRIT 24.5 % (36.0-47.0); HEMOGLOBIN 8.1 g/dl (12.0-15.5)
[2022-05-18 05:40] LABS: HEMOGLOBIN 8.5 g/dl (12.0-15.5); MEAN CORPUSCULAR HEMOGLOBIN 30.5 pg (27.0-33.0); MEAN CORPUSCULAR HGB CONC 32.7 g/dl (32.0-36.5); MEAN CORPUSCULAR VOLUME 93.2 fl (80.0-96.0); PLATELET COUNT, AUTOMATED 218 10^3/uL (150-450); RED BLOOD COUNT 2.79 10^6/uL (4.00-5.40)
[2022-05-18 06:00] VITALS: BP 96/60
[2022-05-18] MEDS ORDERED: MAALOX 30 ML SUSP *UDC PO ONE (06:25)
[2022-05-18 06:32] LABS: BLOOD UREA NITROGEN 12 MG/DL (9-23); CALCIUM LEVEL 7.1 MG/DL (8.3-10.6); CARBON DIOXIDE LEVEL 26 MMOL/L (20-31); CHLORIDE LEVEL 109 MMOL/L (98-107); CREATININE FOR GFR 0.41 MG/DL (0.55-1.30); GLOMERULAR FILTRATION RATE > 60.0 (>45); GLUCOSE, FASTING 97 MG/DL (74-106); MAGNESIUM LEVEL 1.5 MG/DL (1.8-2.4); PHOSPHORUS LEVEL 2.7 MG/DL (2.4-5.1); POTASSIUM SERUM 3.9 MMOL/L (3.5-5.1); SODIUM LEVEL 141 MMOL/L (136-145)
[2022-05-18 08:12] VITALS: BP 94/58
[2022-05-18] MEDS: TIOTROPIUM INHALER/CAPSULE (SPIRIVA) INH SCH (08:20)
[2022-05-18] MEDS: SYMBICORT 160/4.5MCG INHALER 6GM INH SCH ×2 (08:21→20:21)
[2022-05-18] MEDS: MAG SULF 1GM/100ML (MAG RUN) 1 GM in IV 1 EA IV SCH ×2 (09:00→10:35)
[2022-05-18] MEDS: SUCRALFATE SUSP 1GM/10ML UD PO SCH ×3 (09:00→17:37)
[2022-05-18] MEDS: DICYCLOMINE 10 MG CAP PO SCH ×2 (09:01→20:44)
[2022-05-18] MEDS: FLUTICASONE PROP 0.05% NASAL SPRAY 16 GM (FLONASE) NARES SCH (09:01)
[2022-05-18] MEDS: NS 1,000 ML IV SCH ×2 (09:01→23:01)
[2022-05-18] MEDS: OYSTER SHELL CALCIUM 500 MG TAB PO SCH ×2 (09:01→20:44)
[2022-05-18] MEDS: PANTOPRAZOLE 40MG TAB (PROTONIX) PO SCH ×2 (09:01→20:44)
[2022-05-18] MEDS: MULTIVITAMINS/MINERALS THERAP 1 TAB PO SCH ×2 (09:01→20:44)
[2022-05-18] MEDS: CETIRIZINE (ZyrTEC) 10 MG TAB PO SCH (09:01)
[2022-05-18 10:25] LABS: HEMATOCRIT 26.8 % (36.0-47.0); HEMOGLOBIN 8.6 g/dl (12.0-15.5)
[2022-05-18 13:07] LABS: HEMATOCRIT 26.8 % (36.0-47.0); HEMOGLOBIN 8.7 g/dl (12.0-15.5)
[2022-05-18 14:00] VITALS: BP 115/68
[2022-05-18 16:15] LABS: HEMATOCRIT 23.9 % (36.0-47.0); HEMOGLOBIN 7.8 g/dl (12.0-15.5)
[2022-05-18 22:00] VITALS: BP 112/67
[2022-05-18 22:09] LABS: HEMATOCRIT 23.5 % (36.0-47.0); HEMOGLOBIN 7.6 g/dl (12.0-15.5)
[2022-05-19] VITALS (9 sets, daily range): BP systolic 104–125; BP diastolic 64–84
[2022-05-19 04:18] LABS: HEMATOCRIT 22.7 % (36.0-47.0); HEMOGLOBIN 7.5 g/dl (12.0-15.5)
[2022-05-19 04:53] LABS: BLOOD UREA NITROGEN 6 MG/DL (9-23); CALCIUM LEVEL 7.1 MG/DL (8.3-10.6); CARBON DIOXIDE LEVEL 26 MMOL/L (20-31); CHLORIDE LEVEL 109 MMOL/L (98-107); CREATININE FOR GFR 0.41 MG/DL (0.55-1.30); GLOMERULAR FILTRATION RATE > 60.0 (>45); GLUCOSE, FASTING 98 MG/DL (74-106); MAGNESIUM LEVEL 1.6 MG/DL (1.8-2.4); POTASSIUM SERUM 3.8 MMOL/L (3.5-5.1); SODIUM LEVEL 141 MMOL/L (136-145)
[2022-05-19] MEDS: SYMBICORT 160/4.5MCG INHALER 6GM INH SCH ×2 (08:08→20:00)
[2022-05-19] MEDS: TIOTROPIUM INHALER/CAPSULE (SPIRIVA) INH SCH (08:08)
[2022-05-19] MEDS: MAG SULF 1GM/100ML (MAG RUN) 1 GM in IV 1 EA IV SCH ×2 (08:22→10:39)
[2022-05-19] MEDS: SUCRALFATE SUSP 1GM/10ML UD PO SCH ×3 (08:26→17:45)
[2022-05-19] MEDS: CALCIUM CARBONATE 500 MG CHEW U/D PO SCH (09:32)
[2022-05-19] MEDS: FLUTICASONE PROP 0.05% NASAL SPRAY 16 GM (FLONASE) NARES SCH (09:32)
[2022-05-19] MEDS: MULTIVITAMINS/MINERALS THERAP 1 TAB PO SCH ×2 (09:33→21:04)
[2022-05-19] MEDS: OYSTER SHELL CALCIUM 500 MG TAB PO SCH ×2 (09:33→21:04)
[2022-05-19] MEDS: PANTOPRAZOLE 40MG TAB (PROTONIX) PO SCH ×2 (09:33→21:04)
[2022-05-19] MEDS: CETIRIZINE (ZyrTEC) 10 MG TAB PO SCH (09:33)
[2022-05-19] MEDS: DICYCLOMINE 10 MG CAP PO SCH ×2 (09:33→21:04)
[2022-05-19] MEDS: NS 1,000 ML IV SCH ×3 (10:38→21:07)
[2022-05-19 13:30] LABS: HEMATOCRIT 30.9 % (36.0-47.0); HEMOGLOBIN 10.1 g/dl (12.0-15.5)
[2022-05-19] MEDS: OCTREOTIDE ACETATE 100MCG/ML VIAL **SC ADMINISTRATION ONLY SC SCH ×2 (17:45→23:46)
[2022-05-19 19:25] LABS: HEMOGLOBIN 9.4 g/dl (12.0-15.5)
[2022-05-19] MEDS: DOCUSATE SODIUM 100MG CAPSULE PO SCH (21:04)
[2022-05-20 02:30] VITALS: BP 120/73
[2022-05-20 02:56] LABS: HEMATOCRIT 26.2 % (36.0-47.0); HEMOGLOBIN 8.7 g/dl (12.0-15.5)
[2022-05-20 03:46] LABS: BLOOD UREA NITROGEN < 5 MG/DL (9-23); CALCIUM LEVEL 7.3 MG/DL (8.3-10.6); CARBON DIOXIDE LEVEL 29 MMOL/L (20-31); CHLORIDE LEVEL 108 MMOL/L (98-107); CREATININE FOR GFR 0.41 MG/DL (0.55-1.30); GLOMERULAR FILTRATION RATE > 60.0 (>45); GLUCOSE, FASTING 133 MG/DL (74-106); MAGNESIUM LEVEL 1.7 MG/DL (1.8-2.4); POTASSIUM SERUM 3.9 MMOL/L (3.5-5.1); SODIUM LEVEL 142 MMOL/L (136-145)
[2022-05-20 05:24] VITALS: BP 129/78
[2022-05-20] MEDS: SYMBICORT 160/4.5MCG INHALER 6GM INH SCH ×2 (07:46→20:18)
[2022-05-20] MEDS: TIOTROPIUM INHALER/CAPSULE (SPIRIVA) INH SCH (07:46)
[2022-05-20] MEDS ORDERED: MAG SULF 1GM/100ML (MAG RUN) 1 GM in IV 1 EA IV ONE (08:00)
[2022-05-20] MEDS: OCTREOTIDE ACETATE 100MCG/ML VIAL **SC ADMINISTRATION ONLY SC SCH ×2 (09:03→17:18)
[2022-05-20] MEDS: SUCRALFATE SUSP 1GM/10ML UD PO SCH ×3 (09:03→17:18)
[2022-05-20] MEDS: MULTIVITAMINS/MINERALS THERAP 1 TAB PO SCH ×2 (09:04→19:47)
[2022-05-20] MEDS: PANTOPRAZOLE 40MG TAB (PROTONIX) PO SCH ×2 (09:04→19:47)
[2022-05-20] MEDS: CETIRIZINE (ZyrTEC) 10 MG TAB PO SCH (09:04)
[2022-05-20] MEDS: CALCIUM CARBONATE 500 MG CHEW U/D PO SCH (09:04)
[2022-05-20] MEDS: DOCUSATE SODIUM 100MG CAPSULE PO SCH ×2 (09:04→19:49)
[2022-05-20] MEDS: FLUTICASONE PROP 0.05% NASAL SPRAY 16 GM (FLONASE) NARES SCH (09:04)
[2022-05-20] MEDS: OYSTER SHELL CALCIUM 500 MG TAB PO SCH ×2 (09:04→19:47)
[2022-05-20] MEDS: NS 1,000 ML IV SCH ×2 (09:05→19:08)
[2022-05-20] MEDS: DICYCLOMINE 10 MG CAP PO SCH ×2 (09:05→19:47)
[2022-05-20] MEDS ORDERED: GOLYTELY SOLN 4000 ML BTL PO ONE (11:00)
[2022-05-20 11:19] LABS: HEMATOCRIT 27.7 % (36.0-47.0); HEMOGLOBIN 9.1 g/dl (12.0-15.5)
[2022-05-20 15:00] VITALS: BP 129/78
[2022-05-20 18:59] LABS: HEMATOCRIT 31.4 % (36.0-47.0); HEMOGLOBIN 10.1 g/dl (12.0-15.5)
[2022-05-20 22:00] VITALS: BP 125/75
[2022-05-21] MEDS: OCTREOTIDE ACETATE 100MCG/ML VIAL **SC ADMINISTRATION ONLY SC SCH ×2 (00:42→10:14)
[2022-05-21] MEDS: NS 1,000 ML IV SCH (00:43)
[2022-05-21] MEDS: MAALOX 30 ML SUSP *UDC PO PRN ×2 (00:47→10:20)
[2022-05-21 05:30] VITALS: BP 129/71
[2022-05-21 06:16] LABS: HEMATOCRIT 29.6 % (36.0-47.0); HEMOGLOBIN 9.4 g/dl (12.0-15.5)
[2022-05-21] MEDS ORDERED: LIDOCAINE 2% 100MG/5ML SDV (FOR ANES.) As Ordered ONE (07:22)
[2022-05-21] MEDS ORDERED: propofoL 200 MG/20 ML VIAL As Ordered ONE (07:23)
[2022-05-21] MEDS: SUCRALFATE SUSP 1GM/10ML UD PO SCH ×2 (07:30→12:00)
[2022-05-21 07:46] LABS: BLOOD UREA NITROGEN < 5 MG/DL (9-23); CALCIUM LEVEL 7.8 MG/DL (8.3-10.6); CARBON DIOXIDE LEVEL 31 MMOL/L (20-31); CHLORIDE LEVEL 105 MMOL/L (98-107); CREATININE FOR GFR 0.45 MG/DL (0.55-1.30); GLOMERULAR FILTRATION RATE > 60.0 (>45); GLUCOSE, FASTING 110 MG/DL (74-106); MAGNESIUM LEVEL 1.8 MG/DL (1.8-2.4); POTASSIUM SERUM 3.8 MMOL/L (3.5-5.1); SODIUM LEVEL 141 MMOL/L (136-145)
[2022-05-21] MEDS ORDERED: LR 1,000 ML IV SCH (08:45)
[2022-05-21] MEDS ORDERED: ONDANSETRON 4MG 2ML VIAL IV PRN (08:45)
[2022-05-21 09:09] VITALS: BP 122/76
[2022-05-21] MEDS: TIOTROPIUM INHALER/CAPSULE (SPIRIVA) INH SCH (09:34)
[2022-05-21] MEDS: SYMBICORT 160/4.5MCG INHALER 6GM INH SCH (09:35)
[2022-05-21] MEDS: OYSTER SHELL CALCIUM 500 MG TAB PO SCH (10:15)
[2022-05-21] MEDS: CETIRIZINE (ZyrTEC) 10 MG TAB PO SCH (10:15)
[2022-05-21] MEDS: PANTOPRAZOLE 40MG TAB (PROTONIX) PO SCH (10:15)
[2022-05-21] MEDS: CALCIUM CARBONATE 500 MG CHEW U/D PO SCH (10:15)
[2022-05-21] MEDS: DICYCLOMINE 10 MG CAP PO SCH (10:15)
[2022-05-21] MEDS: FLUTICASONE PROP 0.05% NASAL SPRAY 16 GM (FLONASE) NARES SCH (10:15)
[2022-05-21] MEDS: DOCUSATE SODIUM 100MG CAPSULE PO SCH (10:15)
[2022-05-21] MEDS: MULTIVITAMINS/MINERALS THERAP 1 TAB PO SCH (10:15)
[2022-05-21] MEDS ORDERED: PANT40TA29 PO (11:02)
[2022-05-21 14:00] VITALS: BP 126/66
== END 2022-05-21 16:02 | disposition home or self-care (01) | DRG 378 ==
LOC: M ED 20:31 → M ED INP 05-17 05:05 → M MSPAV 05-17 09:08
PROVIDERS: ADMIT Internal Medicine; ATTEND Internal Medicine
PROC: 30233N1 Transfusion of Nonautologous Red Blood Cells into Peripheral Vein, Percutaneous Approach (ICD-10-PCS; 2022-05-17)
PROC: 0DJ08ZZ Inspection of Upper Intestinal Tract, Via Natural or Artificial Opening Endoscopic (ICD-10-PCS; principal; 2022-05-17 16:00)
PROC: 0DJ08ZZ Inspection of Upper Intestinal Tract, Via Natural or Artificial Opening Endoscopic (ICD-10-PCS; 2022-05-21)
DX: K92.1 Melena (principal); D62 Acute posthemorrhagic anemia; J45.909 Unspecified asthma, uncomplicated; N83.209 Unspecified ovarian cyst, unspecified side; I95.9 Hypotension, unspecified; R13.10 Dysphagia, unspecified; R50.9 Fever, unspecified; Z96.652 Presence of left artificial knee joint; E86.0 Dehydration; E03.9 Hypothyroidism, unspecified; K21.9 Gastro-esophageal reflux disease without esophagitis; E83.42 Hypomagnesemia; K57.30 Diverticulosis of large intestine without perforation or abscess without bleeding; K64.1 Second degree hemorrhoids; R55 Syncope and collapse; Z79.82 Long term (current) use of aspirin; Z79.899 Other long term (current) drug therapy; Z88.2 Allergy status to sulfonamides; Z88.5 Allergy status to narcotic agent; Z88.8 Allergy status to other drugs, medicaments and biological substances; Z86.73 Personal history of transient ischemic attack (TIA), and cerebral infarction without residual deficits; M19.90 Unspecified osteoarthritis, unspecified site

== ENCOUNTER → 2022-06-08 | Outpatient (CLI) | payer MEDICARE, MEDICAID ==
[~2022-06-08] MED LIST changes: +ASPI81TA26 PO; +FLUT1BLS17 INH; +PANT40TA29 PO; +VENTAER INH; +VITMTA PO
== END ==
LOC: M WHC 10:35
PROVIDERS: ATTEND Family Medicine
DX: N83.201 Unspecified ovarian cyst, right side (principal)

== ENCOUNTER → 2023-06-03 | Outpatient (CLI) | payer MEDICARE, MEDICAID ==
[~2023-06-03] MED LIST changes: +BREO1INH3 INH; +CYAN-1 PO; -CYAN100050 PO; +DICY-61 PO; -DICY10CA13 PO; +OMEP40CA5 PO
[2023-06-03 09:08] LABS: BASO % 0.7 % (0.0-1.0); EOS # 0.1 10^3/uL (0.0-0.5); EOS % 1.1 % (0.0-3.0); HEMATOCRIT 25.9 % (36.0-47.0); LYMPH # 1.1 10^3/uL (1.5-5.0); LYMPH % 20.3 % (24.0-44.0); MEAN CORPUSCULAR HEMOGLOBIN 15.6 pg (27.0-33.0); MEAN CORPUSCULAR HGB CONC 25.5 g/dl (32.0-36.5); MEAN CORPUSCULAR VOLUME 61.2 fl (80.0-96.0); MONO # 0.7 10^3/uL (0.0-0.8); MONO % 12.1 % (2.0-8.0); NEUTROPHILS # 3.5 10^3/uL (1.5-8.5); NEUTROPHILS % 65.2 % (36.0-66.0); PLATELET COUNT, AUTOMATED 270 10^3/uL (150-450); RED BLOOD COUNT 4.23 10^6/uL (4.00-5.40); WHITE BLOOD COUNT 5.4 10^3/uL (4.0-10.0)
[2023-06-03 09:22] LABS: INR 1.04; PROTHROMBIN TIME 13.3 SECONDS (12.5-14.5)
[2023-06-03 09:26] LABS: HEMOGLOBIN 6.6 g/dl (12.0-15.5)
[2023-06-03 09:42] LABS: IRON (FE) 8 UG/DL (50-170); PERCENT SATURATION 1.9 % (13.2-45.0); TOTAL IRON BINDING CAPACITY 422 UG/DL (250-425)
[2023-06-03 09:46] LABS: ALBUMIN 3.5 G/DL (3.2-5.2); ALKALINE PHOSPHATASE 89 U/L (46-116); ALT/SGPT 23 U/L (7.0-40); AST/SGOT 14 U/L (<34); BILIRUBIN,TOTAL 0.3 MG/DL (0.3-1.2); BLOOD UREA NITROGEN 11 MG/DL (9-23); CALCIUM LEVEL 8.4 MG/DL (8.3-10.6); CARBON DIOXIDE LEVEL 27 MMOL/L (20-31); CHLORIDE LEVEL 107 MMOL/L (98-107); CHOLESTEROL LEVEL 136 MG/DL (<200); CHOLESTEROL RISK RATIO 2.03 (<5); FERRITIN < 0.9 NG/ML (7.3-270.7); FOLATE > 24.00 NG/ML (>5.4); FREE T4 1.12 NG/DL (0.89-1.76); GLOMERULAR FILTRATION RATE > 60.0 (>45); GLUCOSE, FASTING 92 MG/DL (74-106); HDL CHOLESTEROL 66.9 MG/DL (>40); LDL CHOLESTEROL 58.9 MG/DL (<100); MAGNESIUM LEVEL 1.9 MG/DL (1.8-2.4); NON-HDL-C 69.1 MG/DL; SODIUM LEVEL 142 MMOL/L (136-145); THYROID STIMULATING HORMONE 1.123 uIU/ML (0.55-4.78); TOTAL 25(OH) VITAMIN D 45.2 NG/ML (20.0-100.0); TOTAL PROTEIN 6.4 G/DL (5.7-8.2); TRIGLYCERIDES LEVEL 51 MG/DL (<150); VITAMIN B12 LEVEL 1283 PG/ML (211-911)
== END ==
LOC: M LAB 07:47
PROVIDERS: ATTEND Physician Assistant Medical
DX: Z98.84 Bariatric surgery status (principal); Z79.899 Other long term (current) drug therapy

== ENCOUNTER → 2023-06-04 | Outpatient (CLI) | payer MEDICARE, MEDICAID | LOC: M LAB 08:37 | PROVIDERS: ATTEND Physician Assistant Medical | DX: Z98.84 Bariatric surgery status (principal); Z79.899 Other long term (current) drug therapy ==

== ENCOUNTER 2023-06-06 13:23 | Inpatient (IN) | payer MEDICARE, MEDICAID ==
[~2023-06-06] VITALS: Ht 167.6 cm; Wt 69.7 kg
[2023-06-06] VITALS (9 sets, daily range): BP systolic 121–143; BP diastolic 58–78; TEMP 96.4–97.7; O2SAT 98–100
[~2023-06-06 13:23] MED LIST changes: -BREO1INH3 INH; -OMEP40CA5 PO
[2023-06-06 15:21] LABS: BASO % 0.5 % (0.0-1.0); EOS % 0.6 % (0.0-3.0); LYMPH # 1.5 10^3/uL (1.5-5.0); LYMPH % 23.7 % (24.0-44.0); MEAN CORPUSCULAR HEMOGLOBIN 15.6 pg (27.0-33.0); MEAN CORPUSCULAR HGB CONC 25.6 g/dl (32.0-36.5); MEAN CORPUSCULAR VOLUME 60.8 fl (80.0-96.0); MONO # 0.6 10^3/uL (0.0-0.8); MONO % 10.2 % (2.0-8.0); NEUTROPHILS % 64.7 % (36.0-66.0); PLATELET COUNT, AUTOMATED 206 10^3/uL (150-450); RED BLOOD COUNT 4.24 10^6/uL (4.00-5.40); WHITE BLOOD COUNT 6.3 10^3/uL (4.0-10.0)
[2023-06-06 15:24] LABS: HEMATOCRIT 25.8 % (36.0-47.0); HEMOGLOBIN 6.6 g/dl (12.0-15.5)
[2023-06-06 15:31] LABS: INR 1.06; PROTHROMBIN TIME 13.5 SECONDS (12.5-14.5)
[2023-06-06 15:32] LABS: PARTIAL THROMBOPLASTIN TIME 31.9 SECONDS (24.8-34.2)
[2023-06-06 15:49] LABS: ALKALINE PHOSPHATASE 97 U/L (46-116); ALT/SGPT 18 U/L (7.0-40); AST/SGOT 15 U/L (<34); BILIRUBIN,DIRECT 0.1 MG/DL (<0.4); BILIRUBIN,TOTAL 0.3 MG/DL (0.3-1.2); BLOOD UREA NITROGEN 11 MG/DL (9-23); CALCIUM LEVEL 9.1 MG/DL (8.3-10.6); CARBON DIOXIDE LEVEL 27 MMOL/L (20-31); CHLORIDE LEVEL 107 MMOL/L (98-107); CREATININE FOR GFR 0.43 MG/DL (0.55-1.30); GLOMERULAR FILTRATION RATE > 60.0 (>45); GLUCOSE, FASTING 94 MG/DL (74-106); POTASSIUM SERUM 4.1 MMOL/L (3.5-5.1); SODIUM LEVEL 142 MMOL/L (136-145); TOTAL PROTEIN 7.1 G/DL (5.7-8.2)
[2023-06-06] MEDS ORDERED: IPRATROPIUM 0.5MG/ALBUTEROL 2.5MG INH SOL UD 3ML (DUONEB) NEB PRN (17:15)
[2023-06-06 17:28] LABS: RSV AMPLIFICATION NEGATIVE (NEGATIVE)
[2023-06-06] MEDS ORDERED: BREO1INH3 INH (18:02)
[2023-06-06] MEDS ORDERED: OMEP40CA5 PO (18:02)
[2023-06-06] MEDS ORDERED: HOME MED LIST COMPLETE! XX SCH (18:05)
[2023-06-06] MEDS: PANTOPRAZOLE 40MG VIAL IV SCH (18:44)
[2023-06-06 22:56] LABS: HEMATOCRIT 27.8 % (36.0-47.0); HEMOGLOBIN 7.9 g/dl (12.0-15.5)
[2023-06-07] MEDS: PANTOPRAZOLE 40MG VIAL IV SCH ×2 (06:17→17:43)
[2023-06-07 07:06] LABS: BLOOD UREA NITROGEN 8 MG/DL (9-23); CALCIUM LEVEL 8.7 MG/DL (8.3-10.6); CARBON DIOXIDE LEVEL 26 MMOL/L (20-31); CHLORIDE LEVEL 105 MMOL/L (98-107); CREATININE FOR GFR 0.46 MG/DL (0.55-1.30); GLOMERULAR FILTRATION RATE > 60.0 (>45); GLUCOSE, FASTING 90 MG/DL (74-106); POTASSIUM SERUM 3.9 MMOL/L (3.5-5.1); SODIUM LEVEL 139 MMOL/L (136-145)
[2023-06-07 07:07] LABS: HEMATOCRIT 29.6 % (36.0-47.0); HEMOGLOBIN 8.4 g/dl (12.0-15.5); MEAN CORPUSCULAR HEMOGLOBIN 18.6 pg (27.0-33.0); MEAN CORPUSCULAR HGB CONC 28.4 g/dl (32.0-36.5); MEAN CORPUSCULAR VOLUME 65.5 fl (80.0-96.0); PLATELET COUNT, AUTOMATED 161 10^3/uL (150-450); RED BLOOD COUNT 4.52 10^6/uL (4.00-5.40); WHITE BLOOD COUNT 5.5 10^3/uL (4.0-10.0)
[2023-06-07] MEDS: TIOTROPIUM INHALER/CAPSULE (SPIRIVA) INH SCH (09:10)
[2023-06-07] MEDS ORDERED: GOLYTELY SOLN 4000 ML BTL PO ONE (14:00)
[2023-06-07 14:30] VITALS: BP 124/56; TEMP 99.3; O2SAT 96
[2023-06-07] MEDS: MULTIVITAMINS/MINERALS THERAP 1 TAB PO SCH ×2 (14:32→21:05)
[2023-06-07] MEDS: SYMBICORT 80/4.5MCG INHALER 6GM INH SCH ×2 (14:53→21:03)
[2023-06-07] MEDS: DICYCLOMINE 10 MG CAP PO SCH ×2 (16:25→21:05)
[2023-06-07] MEDS: CETIRIZINE (ZyrTEC) 10 MG TAB PO SCH (16:26)
[2023-06-07 18:40] LABS: HEMATOCRIT 32.9 % (36.0-47.0); HEMOGLOBIN 9.2 g/dl (12.0-15.5)
[2023-06-07 21:00] VITALS: BP 138/63; TEMP 97.8; O2SAT 100
[2023-06-07] MEDS ORDERED: ACETAMINOPHEN TAB 650MG DOSE (2X325MG) PO PRN (23:50)
[2023-06-08] VITALS (7 sets, daily range): BP systolic 108–135; BP diastolic 52–66; TEMP 97.5–98.5; O2SAT 96–100
[2023-06-08] MEDS: PANTOPRAZOLE 40MG VIAL IV SCH (05:30)
[2023-06-08 06:48] LABS: BASO # 0.1 10^3/uL (0.0-0.2); BASO % 0.9 % (0.0-1.0); EOS # 0.1 10^3/uL (0.0-0.5); EOS % 1.6 % (0.0-3.0); HEMATOCRIT 28.6 % (36.0-47.0); LYMPH # 1.3 10^3/uL (1.5-5.0); LYMPH % 24.5 % (24.0-44.0); MEAN CORPUSCULAR HEMOGLOBIN 18.3 pg (27.0-33.0); MEAN CORPUSCULAR VOLUME 65.3 fl (80.0-96.0); MONO # 0.8 10^3/uL (0.0-0.8); MONO % 13.7 % (2.0-8.0); NEUTROPHILS # 3.2 10^3/uL (1.5-8.5); NEUTROPHILS % 58.9 % (36.0-66.0); PLATELET COUNT, AUTOMATED 157 10^3/uL (150-450); RED BLOOD COUNT 4.38 10^6/uL (4.00-5.40); WHITE BLOOD COUNT 5.5 10^3/uL (4.0-10.0)
[2023-06-08 07:09] LABS: BLOOD UREA NITROGEN 8 MG/DL (9-23); CALCIUM LEVEL 8.4 MG/DL (8.3-10.6); CARBON DIOXIDE LEVEL 26 MMOL/L (20-31); CHLORIDE LEVEL 105 MMOL/L (98-107); CREATININE FOR GFR 0.42 MG/DL (0.55-1.30); GLOMERULAR FILTRATION RATE > 60.0 (>45); GLUCOSE, FASTING 90 MG/DL (74-106); POTASSIUM SERUM 3.6 MMOL/L (3.5-5.1); SODIUM LEVEL 139 MMOL/L (136-145)
[2023-06-08] MEDS: MULTIVITAMINS/MINERALS THERAP 1 TAB PO SCH (08:47)
[2023-06-08] MEDS: CETIRIZINE (ZyrTEC) 10 MG TAB PO SCH (08:47)
[2023-06-08] MEDS: DICYCLOMINE 10 MG CAP PO SCH (08:48)
[2023-06-08] MEDS: SYMBICORT 80/4.5MCG INHALER 6GM INH SCH (09:45)
[2023-06-08] MEDS: TIOTROPIUM INHALER/CAPSULE (SPIRIVA) INH SCH (09:45)
[2023-06-08 14:24] LABS: HEMATOCRIT 31.8 % (36.0-47.0); HEMOGLOBIN 9.2 g/dl (12.0-15.5)
[2023-06-08] MEDS ORDERED: LIDOCAINE 2% 100MG/5ML SDV (FOR ANES.) As Ordered ONE (16:21)
[2023-06-08] MEDS ORDERED: fentaNYL 100 MCG/2 ML INJECTION As Ordered ONE (16:21)
[2023-06-08] MEDS ORDERED: propofoL 200 MG/20 ML VIAL As Ordered ONE ×2 (16:21→17:13)
[2023-06-08] MEDS ORDERED: ONDANSETRON 4MG 2ML VIAL As Ordered ONE (16:21)
[2023-06-08] MEDS ORDERED: ePHEDrine SULFATE 25 MG/5 ML(5MG/ML) SYRINGE As Ordered ONE (17:13)
[2023-06-08] MEDS ORDERED: LR 1,000 ML IV SCH (17:55)
[2023-06-08] MEDS ORDERED: ONDANSETRON 4MG 2ML VIAL IV PRN (17:55)
[2023-06-08] MEDS ORDERED: fentaNYL 100 MCG/2 ML INJECTION IV PRN (17:55)
[2023-06-08] MEDS ORDERED: FERR325T3 PO (18:19)
[2023-06-08] MEDS ORDERED: COLA100C5 PO (18:19)
== END 2023-06-08 19:20 | disposition home or self-care (01) | DRG 812 ==
LOC: M ED 13:23 → M ED INP 17:05 → ENRESERV 06-07 12:56 → M MS4PR 06-07 14:23
PROVIDERS: ADMIT Internal Medicine; ATTEND Internal Medicine
PROC: 30233N1 Transfusion of Nonautologous Red Blood Cells into Peripheral Vein, Percutaneous Approach (ICD-10-PCS; principal; 2023-06-06)
PROC: 0DJ08ZZ Inspection of Upper Intestinal Tract, Via Natural or Artificial Opening Endoscopic (ICD-10-PCS; 2023-06-08)
PROC: 0DBH8ZX Excision of Cecum, Via Natural or Artificial Opening Endoscopic, Diagnostic (ICD-10-PCS; 2023-06-08)
PROC: 0DBK8ZX Excision of Ascending Colon, Via Natural or Artificial Opening Endoscopic, Diagnostic (ICD-10-PCS; 2023-06-08)
DX: D50.9 Iron deficiency anemia, unspecified (principal); J44.9 Chronic obstructive pulmonary disease, unspecified; K58.9 Irritable bowel syndrome, unspecified; Z86.73 Personal history of transient ischemic attack (TIA), and cerebral infarction without residual deficits; K21.9 Gastro-esophageal reflux disease without esophagitis; Z96.659 Presence of unspecified artificial knee joint; Z98.84 Bariatric surgery status; Z88.2 Allergy status to sulfonamides; Z88.5 Allergy status to narcotic agent; Z88.8 Allergy status to other drugs, medicaments and biological substances; Z79.899 Other long term (current) drug therapy; Z79.82 Long term (current) use of aspirin; D12.2 Benign neoplasm of ascending colon; D12.0 Benign neoplasm of cecum; K57.30 Diverticulosis of large intestine without perforation or abscess without bleeding; K64.8 Other hemorrhoids

== ENCOUNTER 2023-09-19 10:07 | Emergency (ER) | payer MEDICARE, MEDICAID ==
[~2023-09-19] VITALS: Ht 167.6 cm; Wt 70.5 kg
[~2023-09-19 10:07] MED LIST changes: +BREO1INH3 INH; +COLA100C5 PO; +FERR325T3 PO; +OMEP40CA5 PO
[2023-09-19 11:07] LABS: BASO % 0.7 % (0.0-1.0); EOS % 0.7 % (0.0-3.0); HEMATOCRIT 41.5 % (36.0-47.0); HEMOGLOBIN 12.6 g/dl (12.0-15.5); LYMPH # 1.2 10^3/uL (1.5-5.0); LYMPH % 20.1 % (24.0-44.0); MEAN CORPUSCULAR HEMOGLOBIN 24.1 pg (27.0-33.0); MEAN CORPUSCULAR HGB CONC 30.4 g/dl (32.0-36.5); MEAN CORPUSCULAR VOLUME 79.5 fl (80.0-96.0); MONO # 0.6 10^3/uL (0.0-0.8); MONO % 9.4 % (2.0-8.0); NEUTROPHILS % 68.9 % (36.0-66.0); PLATELET COUNT, AUTOMATED 301 10^3/uL (150-450); RED BLOOD COUNT 5.22 10^6/uL (4.00-5.40); WHITE BLOOD COUNT 5.9 10^3/uL (4.0-10.0)
[2023-09-19 11:22] LABS: INR 1.05; PROTHROMBIN TIME 13.4 SECONDS (12.5-14.5)
[2023-09-19 11:36] LABS: LIPASE 31 U/L (12-53)
[2023-09-19 11:38] LABS: ALBUMIN 4.1 G/DL (3.2-5.2); ALKALINE PHOSPHATASE 114 U/L (46-116); ALT/SGPT 22 U/L (7.0-40); AMYLASE 74 U/L (30-118); AST/SGOT 18 U/L (<34); BILIRUBIN,DIRECT 0.1 MG/DL (<0.4); BILIRUBIN,TOTAL 0.4 MG/DL (0.3-1.2); BLOOD UREA NITROGEN 11 MG/DL (9-23); CALCIUM LEVEL 9.3 MG/DL (8.3-10.6); CARBON DIOXIDE LEVEL 32 MMOL/L (20-31); CHLORIDE LEVEL 103 MMOL/L (98-107); CREATININE FOR GFR 0.44 MG/DL (0.55-1.30); GLOMERULAR FILTRATION RATE > 60.0 (>45); GLUCOSE, FASTING 98 MG/DL (74-106); SODIUM LEVEL 140 MMOL/L (136-145); TOTAL PROTEIN 7.6 G/DL (5.7-8.2)
[2023-09-19] MEDS ORDERED: MORPHINE 4 MG/ML 1ML VIAL IV ONE (13:40)
[2023-09-19] MEDS ORDERED: ISOVUE-370 76% 100ML VIAL As Ordered ONE (13:51)
[2023-09-19] MEDS: ONDANSETRON 4MG 2ML VIAL IV ONE (13:55)
[2023-09-19] MEDS: PANTOPRAZOLE 40MG VIAL IV ONE (13:55)
[2023-09-19] MEDS: fentaNYL 100 MCG/2 ML INJECTION IV ONE (13:56)
[2023-09-19] MEDS: NS 1,000 ML IV ONE (13:56)
[2023-09-19] MEDS ORDERED: CARA1TAB6 PO (15:44)
[2023-09-19] MEDS: SUCRALFATE SUSP 1GM/10ML UD PO ONE (17:05)
[2023-09-19 18:07] VITALS: BP 145/78; TEMP 96.2; O2SAT 99
== END 2023-09-19 18:09 | disposition home or self-care (01) ==
LOC: M ED 11:41
DX: K29.90 Gastroduodenitis, unspecified, without bleeding (principal); J45.909 Unspecified asthma, uncomplicated; K21.9 Gastro-esophageal reflux disease without esophagitis; K58.9 Irritable bowel syndrome, unspecified; Z98.84 Bariatric surgery status; Z96.652 Presence of left artificial knee joint; Z88.2 Allergy status to sulfonamides; Z88.5 Allergy status to narcotic agent; Z88.8 Allergy status to other drugs, medicaments and biological substances; Z86.79 Personal history of other diseases of the circulatory system; Z79.52 Long term (current) use of systemic steroids; Z79.82 Long term (current) use of aspirin; Z79.83 Long term (current) use of bisphosphonates; Z79.810 Long term (current) use of selective estrogen receptor modulators (SERMs); Z79.899 Other long term (current) drug therapy
CPT/HCPCS: 74177; 80048; 80076; 81001; 82150; 83605; 83690; 85025; 85610; 85730; 87486; 87581; 87633; 87798; 96361; 96374; 96375; 99284; C9113; J2405; J3010; Q9967

== ENCOUNTER 2023-10-12 20:20 | Emergency (ER) | payer MEDICARE, MEDICAID ==
[~2023-10-12] VITALS: Ht 167.6 cm; Wt 72.3 kg
[2023-10-12 20:20] VITALS: BP 147/67; TEMP 98.4; O2SAT 98
[~2023-10-12 20:20] MED LIST changes: +CARA1TAB6 PO
== END 2023-10-12 21:22 | disposition left against medical advice (07) ==
LOC: M ED 20:20
DX: Z53.21 Procedure and treatment not carried out due to patient leaving prior to being seen by health care provider (principal)

== ENCOUNTER → 2023-10-25 | Outpatient (CLI) | payer MEDICARE, MEDICAID ==
[~2023-10-25] MED LIST changes: +PROHANCE 279.3MG/ML 15ML VIAL As Ordered ONE
== END ==
LOC: M RAD 12:17
PROVIDERS: ATTEND Physician Assistant
DX: E27.8 Other specified disorders of adrenal gland (principal)
CPT/HCPCS: 74183; A9576

== ENCOUNTER → 2024-05-15 | Outpatient (CLI) | payer MEDICARE, MEDICAID ==
[~2024-05-15] MED LIST changes: -PROHANCE 279.3MG/ML 15ML VIAL As Ordered ONE
[2024-05-15 08:54] LABS: BASO % 0.5 % (0.0-1.0); EOS # 0.1 10^3/uL (0.0-0.5); EOS % 1.2 % (0.0-3.0); HEMATOCRIT 45.2 % (36.0-47.0); HEMOGLOBIN 14.8 g/dl (12.0-15.5); LYMPH # 1.5 10^3/uL (1.5-5.0); LYMPH % 23.7 % (24.0-44.0); MEAN CORPUSCULAR HEMOGLOBIN 30.1 pg (27.0-33.0); MEAN CORPUSCULAR HGB CONC 32.7 g/dl (32.0-36.5); MEAN CORPUSCULAR VOLUME 91.9 fl (80.0-96.0); MONO # 0.6 10^3/uL (0.0-0.8); MONO % 8.8 % (2.0-8.0); NEUTROPHILS # 4.2 10^3/uL (1.5-8.5); NEUTROPHILS % 65.5 % (36.0-66.0); PLATELET COUNT, AUTOMATED 254 10^3/uL (150-450); RED BLOOD COUNT 4.92 10^6/uL (4.00-5.40); WHITE BLOOD COUNT 6.5 10^3/uL (4.0-10.0)
[2024-05-15 09:16] LABS: IRON (FE) 80 UG/DL (50-170); TOTAL IRON BINDING CAPACITY 348 UG/DL (250-425)
[2024-05-15 09:17] LABS: ALBUMIN 3.7 G/DL (3.2-5.2); ALKALINE PHOSPHATASE 85 U/L (35-104); ALT/SGPT 19 U/L (7.0-40); AST/SGOT 12 U/L (<34); BILIRUBIN,TOTAL 0.4 MG/DL (0.3-1.2); BLOOD UREA NITROGEN 20 MG/DL (9-23); CALCIUM LEVEL 9.1 MG/DL (8.3-10.6); CARBON DIOXIDE LEVEL 32 MMOL/L (20-31); CHLORIDE LEVEL 108 MMOL/L (98-107); CHOLESTEROL LEVEL 175 MG/DL (<200); CHOLESTEROL RISK RATIO 2.56 (<5); CREATININE FOR GFR 0.54 MG/DL (0.55-1.30); FERRITIN 13.4 NG/ML (7.3-270.7); FREE T4 1.21 NG/DL (0.89-1.76); GLOMERULAR FILTRATION RATE > 60.0 (>45); GLUCOSE, FASTING 92 MG/DL (74-106); HDL CHOLESTEROL 68.3 MG/DL (>40); LDL CHOLESTEROL 94.9 MG/DL (<100); MAGNESIUM LEVEL 1.8 MG/DL (1.8-2.4); NON-HDL-C 106.7 MG/DL; POTASSIUM SERUM 4.2 MMOL/L (3.5-5.1); SODIUM LEVEL 142 MMOL/L (136-145); THYROID STIMULATING HORMONE 1.016 uIU/ML (0.55-4.78); TRIGLYCERIDES LEVEL 59 MG/DL (<150)
[2024-05-15 09:18] LABS: FOLATE > 24.00 NG/ML (>5.4); TOTAL 25(OH) VITAMIN D 49.9 NG/ML (20.0-100.0)
[2024-05-15 09:19] LABS: VITAMIN B12 LEVEL 1772 PG/ML (211-911)
[2024-05-15 09:24] LABS: INR 0.94; PROTHROMBIN TIME 12.8 SECONDS (12.5-14.5)
[2024-05-15 10:37] LABS: HEMOGLOBIN A1c 5.2 % (4.0-6.0)
[2024-05-19 03:52] LABS: VITAMIN A, RETINOL LEVEL 48 mcg/dL (38-98); VITAMIN E(GAMMA TOCOPHEROL) < 1.0 mg/L (<=4.3)
[2024-05-19 19:57] LABS: VITAMIN K 179 pg/mL (130-1500)
[2024-05-21 05:58] LABS: COPPER PLASMA 110 mcg/dL (70-175); ZINC PLASMA 77 mcg/dL (60-130)
[2024-05-21 08:17] LABS: VITAMIN B1 LEVEL WHOLE BLOOD 226 nmol/L (78-185)
[2024-05-21 16:23] LABS: VITAMIN B6,PYRIDOXAL PHOSPHATE 67.4 ng/mL (2.1-21.7)
== END ==
LOC: M LAB 07:33
PROVIDERS: ATTEND Physician Assistant Medical
DX: R79.0 Abnormal level of blood mineral (principal); Z98.84 Bariatric surgery status; Z79.899 Other long term (current) drug therapy

== ENCOUNTER → 2025-02-21 | Outpatient (CLI) | payer MEDICARE, MEDICAID ==
[~2025-02-21] MED LIST changes: +ISOVUE-370 76% 100 ML VIAL ONE
== END ==
LOC: M PLAIMG 14:54
PROVIDERS: ATTEND Registered Nurse
DX: R22.42 Localized swelling, mass and lump, left lower limb (principal); D35.01 Benign neoplasm of right adrenal gland; K59.00 Constipation, unspecified
CPT/HCPCS: 74177; Q9967

== ENCOUNTER 2025-04-27 21:37 | Emergency (ER) | payer MEDICARE, MEDICAID ==
[~2025-04-27] VITALS: Ht 167.6 cm; Wt 75.8 kg
[~2025-04-27 21:37] MED LIST changes: -ISOVUE-370 76% 100 ML VIAL ONE
[2025-04-27 22:38] LABS: BASO # 0.0 10^3/uL (0.0-0.2); BASO % 0.5 % (0.0-1.0); EOS # 0.1 10^3/uL (0.0-0.5); EOS % 0.7 % (0.0-3.0); LYMPH # 1.7 10^3/uL (1.5-5.0); LYMPH % 20.1 % (24.0-44.0); MONO # 0.7 10^3/uL (0.0-0.8); MONO % 8.4 % (2.0-8.0); NEUTROPHILS # 6.1 10^3/uL (1.5-8.5); NEUTROPHILS % 70.1 % (36.0-66.0); PLATELET COUNT, AUTOMATED 282 10^3/uL (150-450)
[2025-04-27 23:12] LABS: ALT/SGPT 21 U/L (7.0-40); AST/SGOT 23 U/L (<34); CALCIUM LEVEL 9.2 MG/DL (8.3-10.6); CARBON DIOXIDE LEVEL 33 MMOL/L (20-31); CHLORIDE LEVEL 105 MMOL/L (98-107); CREATININE FOR GFR 0.52 MG/DL (0.55-1.30); GLOMERULAR FILTRATION RATE > 90.0 (>45); POTASSIUM SERUM 4.2 MMOL/L (3.5-5.1); SODIUM LEVEL 146 MMOL/L (136-145)
[2025-04-27 23:40] VITALS: TEMP 97.8
[2025-04-28] MEDS ORDERED: ISOVUE-370 76% 100 ML VIAL As Ordered ONE (03:21)
[2025-04-28] MEDS: MORPHINE 2 MG/ML 1 ML VIAL IV ONE (03:25)
[2025-04-28] MEDS: FAMOTIDINE 20 MG/2 ML VIAL IVP ONE (03:25)
[2025-04-28] MEDS: NS (Normal Saline) 0.9% 1,000 ML IV ONE (03:25)
[2025-04-28] MEDS: ONDANSETRON 4MG/2ML VIAL IV ONE (03:25)
[2025-04-28 06:45] VITALS: BP 125/69; O2SAT 97
== END 2025-04-28 06:56 | disposition home or self-care (01) ==
LOC: M ED 21:37
DX: R10.9 Unspecified abdominal pain (principal); K59.00 Constipation, unspecified; K44.9 Diaphragmatic hernia without obstruction or gangrene; K76.0 Fatty (change of) liver, not elsewhere classified; J21.9 Acute bronchiolitis, unspecified; J45.909 Unspecified asthma, uncomplicated; K57.30 Diverticulosis of large intestine without perforation or abscess without bleeding; Z86.79 Personal history of other diseases of the circulatory system; Z98.84 Bariatric surgery status; Z88.2 Allergy status to sulfonamides; Z88.5 Allergy status to narcotic agent; Z88.8 Allergy status to other drugs, medicaments and biological substances; Z79.52 Long term (current) use of systemic steroids; Z79.82 Long term (current) use of aspirin; Z79.899 Other long term (current) drug therapy
CPT/HCPCS: 74177; 80048; 80076; 83690; 85025; 96361; 96374; 99284; J1308; J2405; Q9967